=== PATIENT | female | born 1980 | race Caucasian/White ===

== ENCOUNTER 2020-06-26 09:03 | Emergency (ER) | payer BC, SELFPAY ==
[2020-06-26 09:21] VITALS: BP 107/76; PULSE 108; RESP 20; TEMP 37; O2SAT 98; BMI 25.0
--- NOTE | 2020-06-26 09:37 | HMH.EDUTC ---
[facility] [place] Disposition Clinical Impression: Flu-like symptoms UTI (urinary tract infection) Qualifiers: Urinary tract infection type: site unspecified Hematuria presence: with hematuria Qualified Code(s): N39.0 - Urinary tract infection, site not specified; R31.9 - Hematuria, unspecified Disposition: Home, Self-Care Condition on Discharge: Good Instructions: Urinary Tract Infection, DI for Urinary Tract Infection (UTI), DI for Fever (Symptom) -- Adult, Preventing the Spread of Coronavirus Discharge Instructions Additional Instructions: *Increase fluids. Water not Soda or Tea *Start antibiotic immediately and be sure to take as ordered for the FULL length of time although you should start to see improvement over the next 48 hours *Pyridium as needed Remember this medication will turn your urine Christiana. This is normal but it will stain what ever it gets on *You should not use Pyridium for more than 48 hours. If so , follow up with your primary physician to review urine culture and ensure that antibiotic is adequate for infection *Be SURE to follow up anytime for new or worsening symptoms with your family doctor. AND in 48 hours for urine culture results with your family doctor, if you do not have a doctor then you may call back to the [facility] for urine culture results and further treatment. We do recommend that you choose and establish care with a Primary Care Physician. AND follow up with them in 10-14 days to repeat UA to ensure infection is resolved and blood no longer present *Be sure to let your PCP know that we sent urine cultures from the [facility] so they can follow up to ensure that you area the on the correct antibiotic Call your doctor office and make appointment for 48 hours (2 days from today) to follow up and get the results of your urine culture and further treatment Straight to ER if any life threatening symptoms You was tested for today for COVID19 your test result should be back later this evening, you may call back later this evening to see if your test results are back and the result You was given a handout with instructions for Self Quarantine and Self isolation for while you wait on test results and what to do if they are positive *Monitor Temp, Over the counter Motrin or Tylenol as directed/as needed Tylenol every 4 hours and Motrin every 6 hours (as long as your family doctor has told you that you can take it) for fever or pain. and straight to ER if unable to lower temp less than 101.0 after medication given Prescriptions: Sulfamethoxazole/Trimethoprim [Bactrim DS tablet] 1 each PO BID 10 Days #20 tab Prescription Printed Phenazopyridine HCl [Pyridium 200mg Tablet] 200 pow PO TID #6 tab Prescription Printed Referrals: Loli Ashford [Primary Care Provider] - As needed Forms: Work/School Release Time of Disposition: 10:07 Medical Decision Making - Abrahan Inquiry Pt receiving controlled substance: No Abrahan was queried for this patient: No Vital Signs: 06/26/20 09:21 Temperature 98.6 F Temperature Source Oral Pulse Rate [Radial] 108 H Respiratory Rate 20 Blood Pressure [Right Arm] 107/76 L Blood Pressure Mean [Right Arm] 86 Blood Pressure Source [Right Arm] Automatic Cuff Blood Pressure Position [Right Arm] Sitting 02 Sat by Pulse Oximetry 98 Oxygen Delivery Method Room Air - Lab Data Lab results reviewed: Yes: I reviewed the patient's lab results. Orders (Tests/Meds): ED MEDICATIONS Discontinued Medications Generic Name Dose Route Start Last Admin Trade Name Mylene PRN Reason Stop Dose Admin Ceftriaxone Sodium 1 gm 06/26/20 09:50 06/26/20 09:58 Ceftriaxone 1gm Vial IM 06/26/20 09:51 1 gm ONCE ONE Administration Protocol Lidocaine HCl 0 ml 06/26/20 09:50 06/26/20 09:58 Lidocaine 1% 5ml Pf Vial IM 06/26/20 09:51 2.1 ml ONCE ONE Administration ORDERS Category Date Time Status Covid-19 Nasal PCR ([facility]) Routine Lab 06/26/20 09:50 Received Urine Culture Stat Micro
[2020-06-26 10:25] VITALS: BP 107/76; PULSE 108; RESP 20; TEMP 37; O2SAT 98
[2020-06-26 16:35] LABS: UTC Influenza A Antigen Negative (Negative); UTC Influenza B Antigen Negative (Negative)
[2020-06-26 16:36] LABS: Apearance,Urine Clear (Clear); Color,Urine Yellow (Yellow); PH,Urine 5.5 (5.0-8.5)
[2020-06-26 16:37] LABS: Bilirubin,Urine 1+ (Negative); Blood, Urine 2+ (Negative); Glucose,Urine (UA) Negative (Negative); Ketones,Urine TRACE (Negative); Protein,Urine 1+ (Negative); UTC Leukocyte Esterase,Urine 2+ (Negative); UTC Nitrate,Urine Negative (Negative); Urobilinogen,Urine 0.2 EU/dl (0.2)
== END 2020-06-26 10:26 | disposition home or self-care (01) ==
PROVIDERS: Emergency Provider Nurse Practitioner; PCP Nurse Practitioner Family
DX: N30.01 Acute cystitis with hematuria (principal); B96.20 Unspecified Escherichia coli [E. coli] as the cause of diseases classified elsewhere; Z20.828 Contact with and (suspected) exposure to other viral communicable diseases
CPT/HCPCS: 81003; 87086; 87088; 87186; 87804; 96372; 99202; U0003

== ENCOUNTER 2020-06-27 10:47 | Inpatient (IN) | payer BC, SELFPAY ==
[2020-06-27] VITALS (9 sets, daily range): BP systolic 105–146; BP diastolic 63–92; PULSE 90–157; RESP 16–20; TEMP 37.2–39.2; O2SAT 96–100; BMI 25.8
--- NOTE | 2020-06-27 11:10 | XR_ITS ---
PROCEDURE: XR CHEST PORTABLE CLINICAL HISTORY: cough COMPARISON: No exams were available for comparison FINDINGS: The cardiomediastinal silhouette and pulmonary vascularity are within normal limits. The lungs are clear without infiltrates, suspicious nodules, or pleural effusions. No acute bony abnormalities. IMPRESSION: No acute findings. Dictated by: Bill Barnes MD 06/27/2020 12:17 Bill Barnes MD in [place] 06/27/2020 12:17
--- NOTE | 2020-06-27 11:10 | CT_ITS ---
PROCEDURE: CT ABDOMEN PELVIS W CON CLINICAL INDICATION: flank pain Flank pain with fever COMPARISON: No exams were available for comparison TECHNIQUE: IV Contrast: 75ML OPTIRAY 350 Oral Contrast None Axial images obtained with sagittal and coronal reformats. All CT scans at the facility use one or more dose reduction, viz: automated exposure control, ma/kV adjustment per patient size (including targeted exams where dose is matched to indication, i.e. head), or iterative reconstruction technique. FINDINGS: LOWER THORAX: There is minimal thickening of the pericardium anteriorly. ABDOMEN & PELVIS: Low-density changes are present involving the left hepatic lobe anteriorly at the region of the falciform ligament and may be due to fatty infiltration. There is a focal area enhancement involving the central aspect of the right hepatic lobe at 12 mm nonspecific. There is a linear area of decreased attenuation involving the spleen posteriorly possibly related to a splenic cleft and could be confirmed with follow-up. The adrenal glands, pancreas, and gallbladder have an unremarkable appearance. No renal or ureteral calculi are evident. There is some scarring involving the posterior and lateral aspect of the right kidney. 14 mm hypodensity involves the left kidney inferiorly and 10 mm hypodensity of the left kidney posteriorly consistent with left-sided renal cyst. The urinary bladder has an unremarkable appearance. There are small bilateral ovarian follicles. No intestinal obstruction or free air. No evidence of appendicitis or diverticulitis. No acute bony anomaly. Mild prominence of the low-density changes of the endometrium nonspecific. A small hyperdensity is present involving the right aspect of the body of the uterus at 9 mm possibly due to a fibroid. IMPRESSION: No acute abdominal or pelvic findings. Scarring of the right kidney with left renal cyst noted. 12 mm enhancing lesion right hepatic lobe nonspecific Dictated by: Bill Barnes MD 06/27/2020 12:15 Bill Barnes MD in [place] 06/27/2020 12:15
[2020-06-27 11:15] LABS: Microscopic, Urine URINE MICROSCOPIC (MICROSCOPIC)
[2020-06-27 11:18] LABS: Appearance,Urine CLOUDY (Clear); Blood, Urine 2+ (Negative); Color,Urine DK YELLOW (Yellow); Glucose,Urine (UA) TRACE (Negative); Ketones,Urine TRACE (Negative); Leukocyte Esterase,Urine Negative (Negative); Nitrate,Urine POSITIVE (Negative); Protein,Urine 2+ (Negative); Specific Gravity, Urine >= 1.030 (1.005-1.030); Urobilinogen,Urine 0.2 EU/dl (0.2)
--- NOTE | 2020-06-27 11:18 | HMH.EDFEV ---
ED Disposition Clinical Impression: Acute pyelonephritis due to bacteria, Acute onset sepsis Disposition: Admitted As Inpatient Condition on Discharge: Serious Referrals: Loli Ashford [Primary Care Provider] - - Critical Care Critical Care Time: No Attestation: On 06/27/20, the high probability of a clinically significant, sudden or life threatening deterioration of the following system(s) required my full and direct attention, intervention and personal management. The time I documented below is in addition to time spent performing reported procedures but includes the following listed in this critical care notation. Medical Decision Making - Medical Records Medical records reviewed: Yes: I reviewed the patient's medical records. - Abrahan Inquiry Pt receiving controlled substance: No Vital Signs: 06/27/20 10:56 06/27/20 12:42 Temperature 102.6 F H Temperature Source Oral Pulse Rate [Right Radial] 157 H 107 H Respiratory Rate 20 Blood Pressure [Right Arm] 146/92 H 114/70 Blood Pressure Mean [Right Arm] 110 84 Blood Pressure Source [Right Arm] Automatic Cuff Blood Pressure Position [Right Arm] Sitting 02 Sat by Pulse Oximetry 96 97 Oxygen Delivery Method Room Air - Lab Data Lab Results 06/27/20 11:05: Urine Color Dk yellow, Urine Appearance Cloudy, Urine pH 6.0, Ur Specific [place] >= 1.030, Urine Protein 2+, Urine Glucose (UA) Trace, Urine Ketones Trace, Urine Blood 2+, Urine Nitrate Positive, Urine Bilirubin 1+ A, Urine Urobilinogen 0.2, Ur Leukocyte Esterase Negative, Urine RBC 10-20, Urine WBC 3-5, Ur Squamous Epith Cells 3-5, Urine Bacteria Trace 06/27/20 11:05: WBC 6.4, RBC 4.55, Hgb 15.4, Hct 45.9, MCV 100.9 H, MCH 33.9 H, MCHC 33.6, RDW 13.5, Plt Count 105 L, MPV 10.2, Neut % (Auto) 41.0, Lymph % (Auto) 54.0 H, [place] % (Auto) 2.2, Eos % (Auto) 0.2, Baso % (Auto) 2.6 H, Neut # (Auto) 2.6, Lymph # (Auto) 3.4, [place] # (Auto) 0.1, Eos # (Auto) 0.0, Baso # (Auto) 0.2, Total Counted 100, Neutrophils % (Manual) 48, Lymphocytes % (Manual) 45, Monocytes % (Manual) 7, Platelet Estimate Slight decrease, RBC Morphology Normal 06/27/20 11:05: Urine HCG, Qual Negative 06/27/20 11:05: Sodium 131 L, Potassium 3.4 L, Chloride 97 L, Carbon Dioxide 22, Anion Gap 15.4 H, BUN 8, Creatinine 1.00, Estimated Creat Clear 87, Estimated GFR 62, Est GFR ( Amer) 75, Glucose 180 H, Calcium 8.9, Total Bilirubin 0.5, AST 169 H, ALT 72, Alkaline Phosphatase 106, Total Protein 7.4, Albumin 4.1, Globulin 3.3 H, Albumin/Globulin Ratio 1.2 06/27/20 11:05: Lactate 3.6 H 06/27/20 11:05: SARS-CoV-2 IgG Ab (Rapid) Negative, SARS-CoV-2 IgM Ab (Rapid) Negative Result diagrams: 06/27/20 11:05 06/27/20 11:05 Orders (Tests/Meds): ED MEDICATIONS Generic Name Dose Route Start Last Admin Trade Name Freq PRN Reason Stop Dose Admin Ceftriaxone Sodium 2 gm/ 100 mls @ 100 mls/hr 06/27/20 11:15 06/27/20 11:37 Sodium Chloride IV 07/11/20 11:14 100 mls/hr Q24H MARQUITA Administration Protocol Discontinued Medications Generic Name Dose Route Start Last Admin Trade Name Freq PRN Reason Stop Dose Admin Acetaminophen 1,000 mg 06/27/20 11:01 06/27/20 11:10 Acetaminophen 500mg Tab PO 06/27/20 11:02 1,000 mg ONCE ONE Administration Sodium Chloride 1,000 mls @ 999 mls/hr 06/27/20 11:15 06/27/20 11:10 Sod Chlor 0.9% 1000ml Bag IV 06/27/20 12:15 999 mls/hr .Q1H1M MARQUITA Administration Sodium Chloride 1,000 mls @ 999 mls/hr 06/27/20 11:45 06/27/20 11:38 Sod Chlor 0.9% 1000ml Bag IV 06/27/20 12:45 999 mls/hr .Q1H1M MARQUITA Administration Iopamidol 50 ml 06/27/20 11:51 06/27/20 11:52 Iopamidol-370 (76%); 50ml Vial IV 06/27/20 11:52 50 ml ONCE ONE Administration Iopamidol 25 ml 06/27/20 11:51 06/27/20 11:52 Iopamidol-370 (76%); 50ml Vial IV 06/27/20 11:52 25 ml ONCE ONE Administration Ketorolac Tromethamine 30 mg 06/27/20 11:01 06/27/20 11:10 Ketorolac 30mg/Ml Vial IV 06/27/20
[2020-06-27 11:19] LABS: Urine Pregnancy, HCG Qual. Negative (Negative)
[2020-06-27 11:20] LABS: Basophils # 0.2 K/mm3 (0-0.2); Basophils % 2.6 % (0.1-2.0); Bilirubin,Urine 1+ (Negative); Eosinophils % 0.2 % (0.1-12.0); Hematocrit 45.9 % (37.0-47.0); Hemoglobin 15.4 g/dL (12.2-16.2); Lymphocytes # 3.4 K/mm3 (0.7-4.5); Mean Corpuscular HGB Conc 33.6 g/dL (31.8-35.4); Mean Corpuscular Hemoglobin 33.9 pg (27.0-31.2); Mean Corpuscular Volume 100.9 fl (81-99); Mean Platelet Volume 10.2 fl (7.4-10.4); Monocytes # 0.1 K/mm3 (0.1-1.0); Monocytes % 2.2 % (1.7-9.3); Neutrophils # 2.6 K/mm3 (1.8-7.8); Platelet Count 105 K/mm3 (142-424); Red Blood Count 4.55 M/mm3 (4.20-5.40); Red Cell Distribution Width 13.5 % (11.5-17.5); White Blood Count 6.4 K/mm3 (4.8-10.8)
[2020-06-27 11:21] LABS: Chloride 97 mmol/L (98-107)
[2020-06-27 11:22] LABS: Potassium 3.4 mmoL/L (3.5-5.1); Sodium 131 mmol/L (136-145)
[2020-06-27 11:24] LABS: Alanine Aminotransferase 72 U/L (12-78); Alkaline Phosphatase 106 U/L (38-126); Anion Gap 15.4 mEq/L (5-15); Aspartate Amino Transferase 169 U/L (14-36); Bilirubin,Total 0.5 mg/dl (0.2-1.3); Blood Urea Nitrogen 8 mg/dl (7-17); Carbon Dioxide 22 mmol/L (22.0-30.0); Creatinine Clearance Estimated 87 mL/min (50-200); Estimated Glomerular Filt Rate 62 ml/min (>60); GFR (African American) 75 ML/MIN (>60)
[2020-06-27 11:25] LABS: Albumin Level 4.1 g/dl (3.5-5.0); Albumin/Globulin Ratio 1.2 (1.1-1.8); Calcium 8.9 mg/dl (8.4-10.2); Globulin 3.3 g/dL (1.3-3.2); Glucose 180 mg/dl (74-100); MANUAL DIFFERENTIAL MANUAL DIFFERENTIAL (MANUAL DIFF); Total Protein,Serum 7.4 g/dl (6.3-8.2)
[2020-06-27 11:26] LABS: Bacteria,Urine Trace /lpf
[2020-06-27 11:27] LABS: Lactic Acid 3.6 mmol/L (0.7-2.1)
[2020-06-27 11:55] LABS: Coronavirus 19 IgG Antibody Negative (Negative); Coronavirus 19 IgM Antibody Negative (Negative)
[2020-06-27 11:57] LABS: Lymphocytes % 45 % (10-50); Monocytes % 7 % (2-9); Neutrophils % 48 % (42-76); Total Cells Counted 100
[2020-06-27 11:58] LABS: Platelet Estimate Slight Decrease; RBC Morphology Normal
--- NOTE | 2020-06-27 13:21 | PC.NURSE ---
dr hernandez consulting with dr stark concerning admit.
--- NOTE | 2020-06-27 13:25 | PC.NURSE ---
waiting talent acquisition coordinator back from dr. byers who is talent acquisition coordinator for service pts
--- NOTE | 2020-06-27 13:28 | PC.NURSE ---
VANNA TOWNSEND spoke with Dr Chavez
--- NOTE | 2020-06-27 13:29 | PC.NURSE ---
notified care management of admission, [facility] supervisor states no beds available at this time.
--- NOTE | 2020-06-27 14:23 | PC.NURSE ---
washhouse worker states they will have beds coming available, states they will update us when rooms are ready
--- NOTE | 2020-06-27 14:40 | PC.NURSE ---
patient updated on plan of care. denies needs or questions a this time
[2020-06-27 15:14] LABS: Reflex Lactic Add Lactic Reflex
[2020-06-27 16:08] LABS: Lactic Acid Follow Up (RFLX 1) 0.7 mmol/L (0.7-2.1)
--- NOTE | 2020-06-27 16:11 | HMH.PHAVTE ---
[facility] Pharmacy VTE Monitoring - Patient Demographics Admission date: 06/27/20 Report Date: 06/27/20 Time: 16:11 Allergies/Adverse Reactions: Patient Allergies No Known Allergies Allergy (Verified 06/27/20 11:00) Height: 1.68 m Weight: 72.575 kg Patient Problems: Current Active Problems Acute pyelonephritis due to bacteria (Acute) Acute onset sepsis (Acute) - VTE Risk Labs: VTE Related Lab Results Hgb 15.4 g/dL (12.2-16.2) 06/27/20 11:05 Hct 45.9 % (37.0-47.0) 06/27/20 11:05 Plt Count 105 K/mm3 (142-424) L 06/27/20 11:05 BUN 8 mg/dl (7-17) 06/27/20 11:05 Creatinine 1.00 mg/dl (0.52-1.04) 06/27/20 11:05 Estimated Creat Clear 87 mL/min (50-200) 06/27/20 11:05 - Prophylaxis VTE Prophylaxis Ordered?: Yes Types of VTE Prophylaxis: TEDS Knee High Location of Applied Device: Bilateral Lower Extremeties
--- NOTE | 2020-06-27 16:13 | HMH.PHAINT ---
MEDICATION RECONCILIATION COMPLETED ON PATIENT USING EXTERNAL FILL HISTORY FROM PHARMACY. -SHALOM GRAJEDA, OSWALDD
--- NOTE | 2020-06-27 17:24 | HMH.HP ---
*Admission Date: 06/27/20 *Chief complaint: Persistent fever *History of present illness: 40-year-old female presented to the emergency department with generalized weakness and fever. Patient has been having symptoms for the last week or so. She went to a facility in [place] when she was tested for influenza and coronavirus. Both were negative. Her fever persisted and she was seen yesterday at our urgent treatment facility. She again had negative coronavirus and flu testing. However she did have a positive urinalysis. It looks like she grew E. coli in her urine. Patient is endorsing some generalized muscle aches and fatigue. She does complain of some flank pain bilaterally. No radiation. Dull in nature. She states that her biggest complaint is she is having chills and feels warm all the time. She denies any headache or change in vision. No focal weakness. No neck pain. She has had a mild cough, nonproductive. Denies any chest pain or palpitations. No diarrhea or blood in stool. No vaginal discharge. Above note per emergency department. Patient notes that she has right-sided scleral irritation and some gingival bleeding. Otherwise symptoms noted as above [facility] History I have reviewed the patient's past medical history: Yes Medical History: Denies:: Cancer, Diabetes Mellitus Type 1, Diabetes Mellitus Type 2, MRSA *Have you ever received a pneumonia vaccine?: No *Have you received a flu vaccine this season?: No Other Surgeries: Yes: Other (ureter surgery) Amputation: No - *Social History Last grade of school completed: Advanced degree Alcohol Intake: current Alcohol Intake Frequency:: holidays/special occasions only *Occupational Status:: employed Housing: house Household Members: children *Travel in the last 8 weeks: None Family Hx:: Cancer Review of Systems - Review of Systems Review of systems:: pertinent systems reviewed and negative unless documented below - *Neurologic Denies headache(s) Meds Home Medications Medication Instructions Recorded Confirmed Type Phenazopyridine HCl [Pyridium 200 mg PO TID 06/27/20 06/27/20 History 200mg Tablet] Sulfamethoxazole/Trimethoprim 1 each PO BID 06/27/20 06/27/20 History [Bactrim DS tablet] Allergies Allergy/AdvReac Type Severity Reaction Status Date / Time No Known Allergies Allergy Verified 06/27/20 11:00 Exam Vital signs and Labs for Last 24 Hours: Temp Pulse Resp BP Pulse Ox 99.6 F 90 17 110/70 97 06/27/20 16:08 06/27/20 16:08 06/27/20 16:08 06/27/20 16:08 06/27/20 15:06 Laboratory Results - last 24 hr 06/27/20 11:05: Urine Color Dk yellow, Urine Appearance Cloudy, Urine pH 6.0, Ur Specific [place] >= 1.030, Urine Protein 2+, Urine Glucose (UA) Trace, Urine Ketones Trace, Urine Blood 2+, Urine Nitrate Positive, Urine Bilirubin 1+ A, Urine Urobilinogen 0.2, Ur Leukocyte Esterase Negative, Urine RBC 10-20, Urine WBC 3-5, Ur Squamous Epith Cells 3-5, Urine Bacteria Trace 06/27/20 11:05: WBC 6.4, RBC 4.55, Hgb 15.4, Hct 45.9, MCV 100.9 H, MCH 33.9 H, MCHC 33.6, RDW 13.5, Plt Count 105 L, MPV 10.2, Neut % (Auto) 41.0, Lymph % (Auto) 54.0 H, [place] % (Auto) 2.2, Eos % (Auto) 0.2, Baso % (Auto) 2.6 H, Neut # (Auto) 2.6, Lymph # (Auto) 3.4, [place] # (Auto) 0.1, Eos # (Auto) 0.0, Baso # (Auto) 0.2, Total Counted 100, Neutrophils % (Manual) 48, Lymphocytes % (Manual) 45, Monocytes % (Manual) 7, Platelet Estimate Slight decrease, RBC Morphology Normal 06/27/20 11:05: Urine HCG, Qual Negative 06/27/20 11:05: Sodium 131 L, Potassium 3.4 L, Chloride 97 L, Carbon Dioxide 22, Anion Gap 15.4 H, BUN 8, Creatinine 1.00, Estimated Creat Clear 87, Estimated GFR 62, Est GFR ( Amer) 75, Glucose 180 H, Calcium 8.9, Total Bilirubin 0.5, AST 169 H, ALT 72, Alkaline Phosphatase 106, Total Protein 7.4, Albumin 4.1, Globulin 3.3 H, Albumin/Globulin Ratio 1.2 06/27/20 11:05: Lactate 3.6 H 06/27/20 11:05: SARS-CoV-2 IgG Ab (Rapid) Negative, SARS-CoV-
[2020-06-27 18:34] LABS: Adenovirus,PCR Not Detected (NotDetected); Bordetella Pertussis Not Detected (NotDetected); Chlamydophila Pneumoniae, PCR Not Detected (NotDetected); Coronavirus 229E Not Detected (NotDetected); Coronavirus NL63 Not Detected (NotDetected); Coronavirus OC43 Not Detected (NotDetected); Coronovirus HKU1,PCR Not Detected (NotDetected); Human Metapneumovirus Not Detected (NotDetected); Influenza A, PCR Not Detected (NotDetected); Influenza AH1, 2009 Not Detected (NotDetected); Influenza AH1, PCR Not Detected (NotDetected); Influenza AH3,PCR Not Detected (NotDetected); Influenza B, PCR Not Detected (NotDetected); Mycoplasma Pneumoniae, PCR Not Detected (NotDetected); Parainfluenza 1, PCR Not Detected (NotDetected); Parainfluenza 2, PCR Not Detected (NotDetected); Parainfluenza 3, PCR Not Detected (NotDetected); Parainfluenza 4, PCR Not Detected (NotDetected); Respiratory Syncytial Virus Not Detected (NotDetected); Rhinovirus/Enterovirus Not Detected (NotDetected)
--- NOTE | 2020-06-27 19:24 | PC.NURSE ---
report given to sean
[2020-06-28] VITALS (7 sets, daily range): BP systolic 100–129; BP diastolic 50–75; PULSE 94–135; RESP 17–21; TEMP 36.9–39.6; O2SAT 94–100; BMI 26.2
--- NOTE | 2020-06-28 03:18 | PC.NURSE ---
Pt A&OX4 lungs CTA. pt denies SOA or pain. Pt ambulates to BR independently. Pt has rested quietly this shift
[2020-06-28 06:36] LABS: Chloride 104 mmol/L (98-107); Sodium 130 mmol/L (136-145)
[2020-06-28 06:39] LABS: Alanine Aminotransferase 45 U/L (12-78); Albumin Level 2.7 g/dl (3.5-5.0); Alkaline Phosphatase 79 U/L (38-126); Anion Gap 6.7 mEq/L (5-15); Aspartate Amino Transferase 137 U/L (14-36); Bilirubin,Total 0.4 mg/dl (0.2-1.3); Blood Urea Nitrogen 5 mg/dl (7-17); Carbon Dioxide 22 mmol/L (22.0-30.0); Creatinine Clearance Estimated 107 mL/min (50-200); Estimated Glomerular Filt Rate 80 ml/min (>60); GFR (African American) 97 ML/MIN (>60); Globulin 2.6 g/dL (1.3-3.2); Glucose 96 mg/dl (74-100); Total Protein,Serum 5.3 g/dl (6.3-8.2)
--- NOTE | 2020-06-28 07:16 | HMH.ACPN2 ---
Internal Medicine - PN: Subj *Date: 06/28/20 *Time: 09:06 Interval history: Did well overnight. Continued to be febrile. Otherwise, hemodynamically stable. Complains of having diarrhea that is longstanding. Multiple loose stools a day. Lauri discussion this morning about patient's labs. Noted to be thrombocytopenic and have macrocytosis. She does admit to drinking 4 glasses of wine a day for the past month or more. Has been going through increased stress at home consisting of divorce. Not eating well. Discussed how this may be a factor in her conjunctival hemorrhage, risk for infection, and GI symptoms. She denies any history of ever having alcohol withdrawal or seizures. Still has prominent cough this morning. No blood in stool. No new bruising per her report. Denies significant belly pain or nausea. Head still feels foggy but improved per her report. Exam Vital signs and Labs for Last 24 Hours: Temp Pulse Resp BP Pulse Ox 100.2 F H 121 H 17 129/75 99 06/28/20 04:34 06/28/20 04:00 06/28/20 04:00 06/28/20 04:00 06/28/20 04:00 Laboratory Results - last 24 hr 06/27/20 11:05: Urine Color Dk yellow, Urine Appearance Cloudy, Urine pH 6.0, Ur Specific [place] >= 1.030, Urine Protein 2+, Urine Glucose (UA) Trace, Urine Ketones Trace, Urine Blood 2+, Urine Nitrate Positive, Urine Bilirubin 1+ A, Urine Urobilinogen 0.2, Ur Leukocyte Esterase Negative, Urine RBC 10-20, Urine WBC 3-5, Ur Squamous Epith Cells 3-5, Urine Bacteria Trace 06/27/20 11:05: WBC 6.4, RBC 4.55, Hgb 15.4, Hct 45.9, MCV 100.9 H, MCH 33.9 H, MCHC 33.6, RDW 13.5, Plt Count 105 L, MPV 10.2, Neut % (Auto) 41.0, Lymph % (Auto) 54.0 H, [place] % (Auto) 2.2, Eos % (Auto) 0.2, Baso % (Auto) 2.6 H, Neut # (Auto) 2.6, Lymph # (Auto) 3.4, [place] # (Auto) 0.1, Eos # (Auto) 0.0, Baso # (Auto) 0.2, Total Counted 100, Neutrophils % (Manual) 48, Lymphocytes % (Manual) 45, Monocytes % (Manual) 7, Platelet Estimate Slight decrease, RBC Morphology Normal 06/27/20 11:05: Urine HCG, Qual Negative 06/27/20 11:05: Sodium 131 L, Potassium 3.4 L, Chloride 97 L, Carbon Dioxide 22, Anion Gap 15.4 H, BUN 8, Creatinine 1.00, Estimated Creat Clear 87, Estimated GFR 62, Est GFR ( Amer) 75, Glucose 180 H, Calcium 8.9, Total Bilirubin 0.5, AST 169 H, ALT 72, Alkaline Phosphatase 106, Total Protein 7.4, Albumin 4.1, Globulin 3.3 H, Albumin/Globulin Ratio 1.2 06/27/20 11:05: Lactate 3.6 H 06/27/20 11:05: SARS-CoV-2 IgG Ab (Rapid) Negative, SARS-CoV-2 IgM Ab (Rapid) Negative 06/27/20 15:34: Lactate 0.7 06/27/20 18:05: Chlamy pneumoniae PCR Not detected, Adenovirus (PCR) Not detected, B. pertussis DNA (PCR) Not detected, Coronavirus OC43 (PCR) Not detected, Coronavirus HKU1 (PCR) Not detected, Coronavirus 229E (PCR) Not detected, Coronavirus NL63 (PCR) Not detected, Human Metapneumovir PCR Not detected, Influenza A (H1) PCR Not detected, Influ A (H1N1/09) PCR Not detected, Influenza A (H3) PCR Not detected, Influenza Type A (PCR) Not detected, Influenza Type B (PCR) Not detected, M. pneumoniae (PCR) Not detected, Parainfluenza 1 (PCR) Not detected, Parainfluenza 2 (PCR) Not detected, Parainfluenza 3 (PCR) Not detected, Parainfluenza 4 (PCR) Not detected, RSV (PCR) Not detected, Entero/Rhino (PCR) Not detected I & O for Last 24 hours: Intake & Output 06/26/20 06/26/20 06/27/20 06/28/20 00:59 23:59 23:59 23:59 Intake Total 1157 / 1157 Balance 1157 / 1157 Weight 70.505 kg 71.214 kg - Constitutional no acute distress - *Routine HEENT Exam Head: Present: normocephalic Eye: Present: EOMI, PERRL ENT: Present: mucous membranes moist, other (Significant bruising of gums on both upper and lower jaw. No active bleeding) Comments: Conjunctival hemorrhage over entire right eye, left eye normal - *Routine Neck Exam Present: supple. Absent: lymphadenopathy - *Routine Respiratory Exam Present: CTA bilaterally. Absent: rhonchi, wheezes, crackles Comments: Coughing during exa
[2020-06-28 07:47] LABS: Potassium 2.7 mmoL/L (3.5-5.1)
[2020-06-28 09:39] LABS: Magnesium 1.5 mg/dl (1.6-2.3)
[2020-06-28 10:00] LABS: INR 1.23 (0.9-1.1); Prothrombin Time 13.4 seconds (9.4-11.8)
[2020-06-28 15:51] LABS: Basophils # 0.1 K/mm3 (0-0.2); Basophils % 1.2 % (0.1-2.0); Eosinophils % 0.2 % (0.1-12.0); Hematocrit 35.9 % (37.0-47.0); Lymphocytes # 4.2 K/mm3 (0.7-4.5); Lymphocytes % 58.6 % (10-50); Mean Corpuscular HGB Conc 33.8 g/dL (31.8-35.4); Mean Corpuscular Volume 100.5 fl (81-99); Mean Platelet Volume 10.6 fl (7.4-10.4); Monocytes # 0.2 K/mm3 (0.1-1.0); Monocytes % 2.3 % (1.7-9.3); Neutrophils # 2.7 K/mm3 (1.8-7.8); Neutrophils % 37.8 % (37.0-80.0); Platelet Count 87 K/mm3 (142-424); Red Blood Count 3.58 M/mm3 (4.20-5.40); Red Cell Distribution Width 13.7 % (11.5-17.5); White Blood Count 7.2 K/mm3 (4.8-10.8)
--- NOTE | 2020-06-28 15:57 | PC.NURSE ---
PT IS RESTING IN BED. AMBULATED TO THE BATHROOM. TOLERATED TAKING A SHOWER THIS SHIFT. PT HAS NOT HAD MUCH OF AN APPETITE BUT HAS BEEN DRINKING PLENTY OF LIQUIDS. PT HAD A FEVER THIS AFTERNOON OF 103.1 ( MEDICATED WITH TYLENOL) THIS MORNING ON ASSESSMENT THE SCLERA OF HER RT EYE WAS RED AND HER GUMS WERE BRUISED. LATER THIS AFTERNOON THE SCLERA OF HER LEFT EYE LOOKS THE SAME THE RT (NOTIFIED ABOUT THE RT EYE AND TEMP OF 103.1) LUNG SOUNDS CLEAR. ABDOMEN SOFT/ NON TENDER WITH ACTIVE BOWEL SOUNDS. PT STATES SHE HAD 1 LOOSE STOOL THIS MORNING. PT ALSO VOICED EARLIER THIS AFTERNOON THAT SHE FEELS A LOT OF HER PROBLEM IS THAT SHE HAS BEEN REALLY DEPRESSED THE LAST FEW MONTHS B/C SHE WENT THROUGH A REALLY BAD DIVORCE AND HAS ONLY BEEN ABLE TO SEE HER 2 CHILDREN 2 DAY A WEEK AND EVERY OTHER WEEKEND. PT STATES EVER SINCE HER DIVORCE SHE HAS BEEN DRINKING A FEW GLASSES OF WINE AT NIGHTS BUT WHEN SHE LEAVES THE HOSPITAL SHE WILL JUST THROW AWAY WHAT SHE HAS LEFT. CALLED AND PUT IN SOME ORDERS FOR ADDITIONAL LAB WORK.
[2020-06-28 16:15] LABS: MANUAL DIFFERENTIAL MANUAL DIFFERENTIAL (MANUAL DIFF)
[2020-06-28 17:01] LABS: Basophils % 0.6 % (0.1-2.0); Eosinophils % 0.1 % (0.1-12.0); Hematocrit 34.7 % (37.0-47.0); Hemoglobin 11.6 g/dL (12.2-16.2); Lymphocytes # 2.4 K/mm3 (0.7-4.5); Lymphocytes % 47.8 % (10-50); Mean Corpuscular HGB Conc 33.6 g/dL (31.8-35.4); Mean Corpuscular Hemoglobin 33.3 pg (27.0-31.2); Mean Corpuscular Volume 99.2 fl (81-99); Mean Platelet Volume 10.1 fl (7.4-10.4); Monocytes # 0.1 K/mm3 (0.1-1.0); Monocytes % 2.2 % (1.7-9.3); Neutrophils # 2.5 K/mm3 (1.8-7.8); Neutrophils % 49.2 % (37.0-80.0); Platelet Count 88 K/mm3 (142-424); Red Cell Distribution Width 13.6 % (11.5-17.5); White Blood Count 5.1 K/mm3 (4.8-10.8)
[2020-06-28 17:15] LABS: Lymphocytes % 42 % (10-50); Monocytes % 11 % (2-9); Neutrophils % 38 % (42-76); Total Cells Counted 100
[2020-06-28 17:16] LABS: D-Dimer > 8.10 ug/mL (0.15-8.0)
[2020-06-28 17:17] LABS: Lactate Dehydrogenase 1644 U/L (313-618)
[2020-06-28 17:19] LABS: Microcytosis 1+
[2020-06-28 17:20] LABS: Polychromasia 2+
[2020-06-28 17:21] LABS: Platelet Estimate Moderate Decrease
[2020-06-28 17:24] LABS: Hemoglobin 12.1 g/dL (12.2-16.2)
[2020-06-28 17:59] LABS: Uric Acid 2.6 mg/dl (2.5-6.2)
--- NOTE | 2020-06-28 19:07 | PC.NURSE ---
report given to sean
[2020-06-29] VITALS (10 sets, daily range): BP systolic 117–123; BP diastolic 60–75; PULSE 111–120; RESP 18–21; TEMP 37.2–39.4; O2SAT 95–96; BMI 26.2
--- NOTE | 2020-06-29 00:54 | PC.NURSE ---
1999 patient complaining of being cold, temp taken 99.2. an hour later patient complained of chilling, temp taken 99.7 tylenol given. an hour later 101.7. midnight vs done temp up to 102.9 and aching toradol. temp now 0045 down to 100.5
[2020-06-29 06:22] LABS: Basophils % 0.8 % (0.1-2.0); Eosinophils % 0.3 % (0.1-12.0); Hematocrit 35.1 % (37.0-47.0); Hemoglobin 11.3 g/dL (12.2-16.2); Lymphocytes # 1.7 K/mm3 (0.7-4.5); Lymphocytes % 38.7 % (10-50); Mean Corpuscular HGB Conc 32.3 g/dL (31.8-35.4); Mean Corpuscular Hemoglobin 32.5 pg (27.0-31.2); Mean Corpuscular Volume 100.7 fl (81-99); Mean Platelet Volume 10.7 fl (7.4-10.4); Monocytes # 0.1 K/mm3 (0.1-1.0); Monocytes % 2.9 % (1.7-9.3); Neutrophils # 2.6 K/mm3 (1.8-7.8); Neutrophils % 57.2 % (37.0-80.0); Platelet Count 58 K/mm3 (142-424); Red Blood Count 3.49 M/mm3 (4.20-5.40); Red Cell Distribution Width 13.3 % (11.5-17.5); White Blood Count 4.5 K/mm3 (4.8-10.8)
[2020-06-29 06:23] LABS: Chloride 108 mmol/L (98-107); Sodium 134 mmol/L (136-145)
[2020-06-29 06:24] LABS: Potassium 3.3 mmoL/L (3.5-5.1)
[2020-06-29 06:26] LABS: Alanine Aminotransferase 45 U/L (12-78); Albumin Level 2.6 g/dl (3.5-5.0); Alkaline Phosphatase 95 U/L (38-126); Anion Gap 8.3 mEq/L (5-15); Aspartate Amino Transferase 140 U/L (14-36); Bilirubin,Total 0.6 mg/dl (0.2-1.3); Blood Urea Nitrogen 4 mg/dl (7-17); Carbon Dioxide 21 mmol/L (22.0-30.0); Creatinine Clearance Estimated 123 mL/min (50-200); Estimated Glomerular Filt Rate 94 ml/min (>60); GFR (African American) 113 ML/MIN (>60); Globulin 2.6 g/dL (1.3-3.2); Glucose 116 mg/dl (74-100); Total Protein,Serum 5.2 g/dl (6.3-8.2)
[2020-06-29 06:27] LABS: Magnesium 2.3 mg/dl (1.6-2.3)
--- NOTE | 2020-06-29 07:03 | PC.NURSE ---
shift summary patient spike another temp this am of 101.1 orally. treated with tylenol. temp currently 99.9 patient continues to have dry cough. breath sounds. breath sounds clear. bilateral sclera blood red. not increased since beginning of shift.
[2020-06-29 07:58] LABS: Basophils % 0.8 % (0.1-2.0); Eosinophils % 0.3 % (0.1-12.0); Hematocrit 34.9 % (37.0-47.0); Hemoglobin 11.3 g/dL (12.2-16.2); Lymphocytes # 1.6 K/mm3 (0.7-4.5); Lymphocytes % 34.6 % (10-50); Mean Corpuscular HGB Conc 32.3 g/dL (31.8-35.4); Mean Corpuscular Hemoglobin 32.4 pg (27.0-31.2); Mean Corpuscular Volume 100.4 fl (81-99); Monocytes # 0.1 K/mm3 (0.1-1.0); Monocytes % 1.6 % (1.7-9.3); Neutrophils # 2.9 K/mm3 (1.8-7.8); Neutrophils % 62.8 % (37.0-80.0); Platelet Count 67 K/mm3 (142-424); Red Blood Count 3.48 M/mm3 (4.20-5.40); Red Cell Distribution Width 13.4 % (11.5-17.5); White Blood Count 4.6 K/mm3 (4.8-10.8)
--- NOTE | 2020-06-29 08:12 | HMH.ACPN2 ---
Internal Medicine - PN: Subj *Date: 06/29/20 *Time: 08:12 Interval history: Patient feels better, has continued to cough notes no bleeding in sputum, nose or urine or stool. --Feels more energetic. Exam Vital signs and Labs for Last 24 Hours: Temp Pulse Resp BP Pulse Ox 98.9 F 111 H 18 119/60 95 06/29/20 07:36 06/29/20 07:36 06/29/20 07:36 06/29/20 07:36 06/29/20 07:36 Laboratory Results - last 24 hr 06/28/20 05:40: Magnesium 1.5 L 06/28/20 05:40: WBC 7.2, RBC 3.58 L, Hgb 12.1 L D, Hct 35.9 L, MCV 100.5 H, MCH 34.0 H, MCHC 33.8, RDW 13.7, Plt Count 87 L, MPV 10.6 H, Neut % (Auto) 37.8, Lymph % (Auto) 58.6 H, [place] % (Auto) 2.3, Eos % (Auto) 0.2, Baso % (Auto) 1.2, Neut # (Auto) 2.7, Lymph # (Auto) 4.2, [place] # (Auto) 0.2, Eos # (Auto) 0.0, Baso # (Auto) 0.1, Total Counted 100, Neutrophils % (Manual) 38 L, Band Neutrophils % 2.0, Lymphocytes % (Manual) 42, Atypical Lymphs % 2.0, Monocytes % (Manual) 11 H, Basophils % (Manual) 1.0, Metamyelocytes % 1.0, Blast Cells % 3.0, Platelet Estimate Moderate decrease, Polychromasia 2+, Microcytosis 1+ 06/28/20 09:30: PT 13.4 H, INR 1.23 H, APTT 34.0 06/28/20 16:44: Lactate Dehydrogenase 1644 H 06/28/20 16:44: WBC 5.1 D, RBC 3.50 L, Hgb 11.6 L, Hct 34.7 L, MCV 99.2 H, MCH 33.3 H, MCHC 33.6, RDW 13.6, Plt Count 88 L, MPV 10.1, Neut % (Auto) 49.2, Lymph % (Auto) 47.8, [place] % (Auto) 2.2, Eos % (Auto) 0.1, Baso % (Auto) 0.6, Neut # (Auto) 2.5, Lymph # (Auto) 2.4, [place] # (Auto) 0.1, Eos # (Auto) 0.0, Baso # (Auto) 0.0 06/28/20 16:44: D-Dimer > 8.10 H 06/28/20 16:44: Uric Acid 2.6 06/29/20 05:44: WBC 4.5 L, RBC 3.49 L, Hgb 11.3 L, Hct 35.1 L, MCV 100.7 H, MCH 32.5 H, MCHC 32.3, RDW 13.3, Plt Count 58 L D, MPV 10.7 H, Neut % (Auto) 57.2, Lymph % (Auto) 38.7, [place] % (Auto) 2.9, Eos % (Auto) 0.3, Baso % (Auto) 0.8, Neut # (Auto) 2.6, Lymph # (Auto) 1.7, [place] # (Auto) 0.1, Eos # (Auto) 0.0, Baso # (Auto) 0.0 06/29/20 05:44: Sodium 134 L, Potassium 3.3 L D, Chloride 108 H, Carbon Dioxide 21 L, Anion Gap 8.3, BUN 4 L, Creatinine 0.70, Estimated Creat Clear 123, Estimated GFR 94, Est GFR ( Amer) 113, Glucose 116 H, Calcium 7.0 L, Magnesium 2.3 D, Total Bilirubin 0.6, AST 140 H, ALT 45, Alkaline Phosphatase 95, Total Protein 5.2 L, Albumin 2.6 L, Globulin 2.6, Albumin/Globulin Ratio 1.0 L 06/29/20 07:50: WBC 4.6 L, RBC 3.48 L, Hgb 11.3 L, Hct 34.9 L, MCV 100.4 H, MCH 32.4 H, MCHC 32.3, RDW 13.4, Plt Count 67 L, MPV 11.0 H, Neut % (Auto) 62.8, Lymph % (Auto) 34.6, [place] % (Auto) 1.6 L, Eos % (Auto) 0.3, Baso % (Auto) 0.8, Neut # (Auto) 2.9, Lymph # (Auto) 1.6, [place] # (Auto) 0.1, Eos # (Auto) 0.0, Baso # (Auto) 0.0 I & O for Last 24 hours: Intake & Output 06/26/20 06/27/20 06/28/20 06/29/20 11:59 11:59 11:59 11:59 Intake Total 1397 / 1397 2450 / 2450 Balance 1397 / 1397 2450 / 2450 Weight 160 lb 157 lb 157 lb Narrative: Bilateral conjunctival hemorrhages noted. No anterior chamber bleeding evident. Oropharynx clear in the posterior area. Still with gingival irritation and mild bleeding. Lungs have better air movement. Heart rate regular. Abdomen is scaphoid. No noted petechiae or evidence of joint bleeding. Neurologic exam intact Assessment and Plan (1) Acute onset sepsis Status: Acute Category: Medical Code(s): A41.9 - Sepsis, unspecified organism (2) Acute pyelonephritis due to bacteria Status: Acute Category: Medical Code(s): N10 - Acute pyelonephritis; B96.89 - Other specified bacterial agents as the cause of diseases classified elsewhere (3) Flu-like symptoms Status: Acute Category: Medical Code(s): R68.89 - Other general symptoms and signs (4) Thrombocytopenia Status: Acute Category: Medical Code(s): D69.6 - Thrombocytopenia, unspecified (5) Macrocytosis Status: Acute Category: Medical Code(s): D75.89 - Other specified diseases of blood and blood-forming organs (6) Hypokalemia Status: Acute Category: Medical Code(s):
--- NOTE | 2020-06-29 11:23 | PC.NURSE ---
On assessment pt noted to have raised red bumps on thighs that had spread to cover abdomen and lower back; No itching or symptoms associated with them. Pt also vomited once and reported nausea. Vomitus was yellow, no blood noted. MD notified, new order for 4mg zofran IV q6hr prn. Sponges given to patient to brush teeth with, upon brushing gums they started to bleed so pt stopped and reported it to this RN. Gums appeared bluish/bruised w/ scant amount of bloody drainage and petechiae noted.
--- NOTE | 2020-06-29 13:57 | PC.NURSE ---
Rash-like appearance on abdomen
--- NOTE | 2020-06-29 13:58 | PC.NURSE ---
Rash-like appearance to left upper thigh
--- NOTE | 2020-06-29 13:59 | PC.NURSE ---
Rash-like appearance to rt upper thigh
--- NOTE | 2020-06-29 14:00 | PC.NURSE ---
Bruising to gums
[2020-06-29 17:36] LABS: Basophils % 0.7 % (0.1-2.0); Eosinophils % 0.3 % (0.1-12.0); Hematocrit 34.3 % (37.0-47.0); Hemoglobin 11.3 g/dL (12.2-16.2); Lymphocytes # 1.7 K/mm3 (0.7-4.5); Lymphocytes % 37.6 % (10-50); Mean Corpuscular HGB Conc 32.9 g/dL (31.8-35.4); Mean Corpuscular Hemoglobin 32.9 pg (27.0-31.2); Mean Corpuscular Volume 100.1 fl (81-99); Mean Platelet Volume 11.4 fl (7.4-10.4); Monocytes # 0.2 K/mm3 (0.1-1.0); Monocytes % 3.3 % (1.7-9.3); Neutrophils # 2.6 K/mm3 (1.8-7.8); Neutrophils % 58.1 % (37.0-80.0); Platelet Count 62 K/mm3 (142-424); Red Blood Count 3.42 M/mm3 (4.20-5.40); Red Cell Distribution Width 13.4 % (11.5-17.5); White Blood Count 4.5 K/mm3 (4.8-10.8)
--- NOTE | 2020-06-29 18:46 | PC.NURSE ---
Pt had a bath today, tolerated well. Rt eyelid appears to be bruising some. Dr Chavez notified of 1610 labs. New order for labs requested: B12 now, CMP and CBC for morning. Read back and verified. Tylenol given q4hrs for fever. No new concerns at this time. Report to be given to oncoming nurse.
[2020-06-29 18:59] LABS: Vitamin B12 > 1000 pg/mL (239-931)
--- NOTE | 2020-06-29 19:07 | PC.NURSE ---
report given to joanna
[2020-06-30] VITALS (9 sets, daily range): BP systolic 108–126; BP diastolic 69–81; PULSE 84–130; RESP 16–18; TEMP 38.8–39.5; O2SAT 90–94; BMI 27.2
--- NOTE | 2020-06-30 05:37 | PC.NURSE ---
shift summary, pt has been tachycardic this shift with HR from 120-123, temperatures from 101.9-102.1, temperature treated per OCT, pt lungs CTA, has non productive, hacking cough, bilateral sclera remain red
[2020-06-30 06:55] LABS: Basophils # 0.1 K/mm3 (0-0.2); Basophils % 0.7 % (0.1-2.0); Eosinophils % 0.2 % (0.1-12.0); Hematocrit 35.5 % (37.0-47.0); Hemoglobin 11.5 g/dL (12.2-16.2); Lymphocytes # 2.8 K/mm3 (0.7-4.5); Lymphocytes % 38.5 % (10-50); Mean Corpuscular HGB Conc 32.3 g/dL (31.8-35.4); Mean Corpuscular Hemoglobin 32.7 pg (27.0-31.2); Mean Corpuscular Volume 101.2 fl (81-99); Mean Platelet Volume 12.1 fl (7.4-10.4); Monocytes # 0.2 K/mm3 (0.1-1.0); Monocytes % 3.2 % (1.7-9.3); Neutrophils # 4.1 K/mm3 (1.8-7.8); Neutrophils % 57.4 % (37.0-80.0); Platelet Count 73 K/mm3 (142-424); Red Blood Count 3.51 M/mm3 (4.20-5.40); Red Cell Distribution Width 13.4 % (11.5-17.5); White Blood Count 7.2 K/mm3 (4.8-10.8)
--- NOTE | 2020-06-30 06:58 | PC.NURSE ---
pt does report this morning, that when she coughs she gets short of breath, o2 sats have been 92-96% on room air
[2020-06-30 07:52] LABS: Chloride 104 mmol/L (98-107)
[2020-06-30 07:53] LABS: Potassium 3.5 mmoL/L (3.5-5.1); Sodium 131 mmol/L (136-145)
[2020-06-30 07:55] LABS: Blood Urea Nitrogen 5 mg/dl (7-17); Creatinine Clearance Estimated 112 mL/min (50-200); Estimated Glomerular Filt Rate 80 ml/min (>60); GFR (African American) 97 ML/MIN (>60)
[2020-06-30 07:56] LABS: Alanine Aminotransferase 47 U/L (12-78); Albumin Level 2.7 g/dl (3.5-5.0); Alkaline Phosphatase 109 U/L (38-126); Anion Gap 10.5 mEq/L (5-15); Aspartate Amino Transferase 137 U/L (14-36); Bilirubin,Total 0.5 mg/dl (0.2-1.3); Calcium 7.1 mg/dl (8.4-10.2); Carbon Dioxide 20 mmol/L (22.0-30.0); Globulin 2.8 g/dL (1.3-3.2); Glucose 97 mg/dl (74-100); Total Protein,Serum 5.5 g/dl (6.3-8.2)
--- NOTE | 2020-06-30 08:04 | XR_ITS ---
PROCEDURE: XR CHEST 2V CLINICAL HISTORY: SOA COMPARISON: CR XR CHEST PORTABLE from 06/27/2020 FINDINGS: The cardiomediastinal silhouette and pulmonary vascularity are within normal limits. Bilateral lower lobe infiltrates are present with small bilateral effusions. No acute bony abnormalities. IMPRESSION: Bilateral lower lobe pneumonia with small bilateral effusions Dictated by: Bill Barnes MD 06/30/2020 11:58 Bill Barnes MD in [facility] 06/30/2020 11:58
--- NOTE | 2020-06-30 08:04 | HMH.ACPN2 ---
Internal Medicine - PN: Subj *Date: 06/30/20 *Time: 08:04 Interval history: Patient feels somewhat tired this morning, slept poorly last night. Complains of some mild shortness of air but no cough, no sputum production, no hemoptysis. Gingival discomfort is the same. She is noted no new sites of bleeding. Rash remains unchanged. Exam Vital signs and Labs for Last 24 Hours: Temp Pulse Resp BP Pulse Ox 101.9 F H 123 H 18 123/81 92 L 06/30/20 04:00 06/30/20 04:00 06/30/20 04:00 06/30/20 04:00 06/30/20 04:00 Laboratory Results - last 24 hr 06/29/20 05:44: Vitamin B12 > 1000 H 06/29/20 16:10: WBC 4.5 L, RBC 3.42 L, Hgb 11.3 L, Hct 34.3 L, MCV 100.1 H, MCH 32.9 H, MCHC 32.9, RDW 13.4, Plt Count 62 L, MPV 11.4 H, Neut % (Auto) 58.1, Lymph % (Auto) 37.6, [place] % (Auto) 3.3, Eos % (Auto) 0.3, Baso % (Auto) 0.7, Neut # (Auto) 2.6, Lymph # (Auto) 1.7, [place] # (Auto) 0.2, Eos # (Auto) 0.0, Baso # (Auto) 0.0 06/30/20 06:35: WBC 7.2 D, RBC 3.51 L, Hgb 11.5 L, Hct 35.5 L, MCV 101.2 H, MCH 32.7 H, MCHC 32.3, RDW 13.4, Plt Count 73 L, MPV 12.1 H, Neut % (Auto) 57.4, Lymph % (Auto) 38.5, [place] % (Auto) 3.2, Eos % (Auto) 0.2, Baso % (Auto) 0.7, Neut # (Auto) 4.1, Lymph # (Auto) 2.8, [place] # (Auto) 0.2, Eos # (Auto) 0.0, Baso # (Auto) 0.1 06/30/20 06:35: Sodium 131 L, Potassium 3.5, Chloride 104, Carbon Dioxide 20 L, Anion Gap 10.5, BUN 5 L, Creatinine 0.80, Estimated Creat Clear 112, Estimated GFR 80, Est GFR ( Amer) 97, Glucose 97, Calcium 7.1 L, Total Bilirubin 0.5, AST 137 H, ALT 47, Alkaline Phosphatase 109, Total Protein 5.5 L, Albumin 2.7 L, Globulin 2.8, Albumin/Globulin Ratio 1.0 L I & O for Last 24 hours: Intake & Output 06/27/20 06/28/20 06/29/20 06/30/20 11:59 11:59 11:59 11:59 Intake Total 1397 / 1397 2690 / 2690 3087 / 3087 Balance 1397 / 1397 2690 / 2690 3087 / 3087 Weight 160 lb 157 lb 157 lb 163 lb 7 oz Microbiology Reports for the Last 24 Hours: Microbiology 06/27/20 11:05 Blood Blood Culture - Preliminary NO GROWTH AFTER 48 HOURS 06/27/20 11:05 Blood Blood Culture - Preliminary NO GROWTH AFTER 48 HOURS Narrative: Patient is alert, oriented x3. Continues to have bilateral scleral hemorrhage, gingivitis with mild hemorrhage noted, no posterior pharynx lesions. Lungs have good air movement. No wheezing or crackles or rhonchi. Heart rate regular. No murmurs. No new rash except for the folliculitis appearance on her abdomen and upper thighs. No clubbing or edema noted. She is neurologically intact. Assessment and Plan (1) Acute onset sepsis Status: Acute Category: Medical Code(s): A41.9 - Sepsis, unspecified organism (2) Acute pyelonephritis due to bacteria Status: Acute Category: Medical Code(s): N10 - Acute pyelonephritis; B96.89 - Other specified bacterial agents as the cause of diseases classified elsewhere (3) Flu-like symptoms Status: Acute Category: Medical Code(s): R68.89 - Other general symptoms and signs (4) Thrombocytopenia Status: Acute Category: Medical Code(s): D69.6 - Thrombocytopenia, unspecified (5) Macrocytosis Status: Acute Category: Medical Code(s): D75.89 - Other specified diseases of blood and blood-forming organs (6) Hypokalemia Status: Acute Category: Medical Code(s): E87.6 - Hypokalemia - Assessment and plan all Dx Assessment and Plan for all problems:: Continue current antibiotic therapy. Stop IV fluids given dyspnea, check chest x-ray for possible fluid overload given the significant fluid boluses she has had on admission. Hematology consult today. Platelet count has stabilized. White cell count is improving.
--- NOTE | 2020-06-30 08:10 | PC.NURSE ---
Dr Chavez aware of fever and heart rate.
[2020-06-30 09:41] LABS: Peripheral Smear Review Scanned Result
--- NOTE | 2020-06-30 11:02 | CT_ITS ---
PROCEDURE: CT ANGIO CHEST CLINCIAL INDICATION: PULMONARY EMBOLUS Shortness of air, dyspnea COMPARISON: CT CT ABDOMEN PELVIS W CON from 06/27/2020 TECHNIQUE: IV Contrast: 70ML Isovue 370 Axial images obtained with sagittal and coronal reformats. All CT scans at the facility use one or more dose reduction, viz: automated exposure control, ma/kV adjustment per patient size (including targeted exams where dose is matched to indication, i.e. head), or iterative reconstruction technique. FINDINGS: HEART AND MEDIASTINAL STRUCTURES: No evidence of aortic aneurysm or dissection. Pulmonary artery opacification is less than optimal however, no definite evidence of pulmonary embolus. Normal heart size. There is mild thickening of the pericardium anteriorly and inferiorly. LUNGS AND PLEURAL SPACES: There are small bilateral pleural effusions. There is mild alveolar opacification in both lower lobes right greater than left which may be due to areas of atelectasis and/or infiltrate. BONY STRUCTURES: No acute bony abnormalities apparent. UPPER ABDOMEN: Low-density changes are present within the liver along the region of the falciform ligament consistent with fatty infiltration. There is an additional area of decreased attenuation in the left hepatic lobe posteriorly at the gallbladder fossa region which could also be due to fatty infiltration. Follow-up may confirm and to exclude underlying liver lesion. ADDITIONAL FINDINGS: No other significant abnormalities. IMPRESSION: Bilateral lower lobe pneumonia and/or atelectatic change with small bilateral effusions Nonspecific low-density areas of the liver Dictated by: Bill Barnes MD 06/30/2020 11:57 Bill Barnes MD in [facility] 06/30/2020 11:57
--- NOTE | 2020-06-30 11:02 | HMH.PULMCON ---
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 coli has been admitted for the last 3 days and green treated with ceftriaxone azithromycin for possible UTI complained of subacute onset dyspnea from yesterday night. Patient denies any cough or any productive phlegm. Patient is a former smoker last smoked 20 years ago only 2-pack-year smoking history. Denies any baseline respiratory complaints. Pulmonary was called to evaluate for patient's dyspnea [facility] History Medical History: Denies:: Cancer, Diabetes Mellitus Type 1, Diabetes Mellitus Type 2, MRSA *Have you ever received a pneumonia vaccine?: No *Have you received a flu vaccine this season?: No Other Surgeries: Yes: Other (ureter surgery) Amputation: No - *Social History Last grade of school completed: Advanced degree Alcohol Intake: current Alcohol Intake Frequency:: holidays/special occasions only *Occupational Status:: employed Housing: house Household Members: children *Travel in the last 8 weeks: None Family Hx:: Cancer ROS - Cons Reports body ache(s), Reports chills, Reports fatigue - Eyes Denies blind spots, Denies blurry vision - ENT Reports bleeding gums, Denies abnormal hearing - Card Reports shortness of breath, Reports shortness of breath with activity, Denies chest pain, Denies chest pain at rest - Resp Respiratory: Yes chest congestion, No cough, No non-productive cough, Yes dyspnea, Yes dyspnea on exertion, No excessive phlegm production, No coughing up blood, No pain on inspiration, No pain with cough, No cough with sputum production, No snoring, No stridor - GI Gastrointestingal: Denies: change in bowel habits, change in stool character - [place] Musculoskeletal: Reports system reviewed and no additional complaints, except as docu Meds Home Medications Medication Instructions Recorded Confirmed Type Phenazopyridine HCl [Pyridium 200 mg PO TID 06/27/20 06/27/20 History 200mg Tablet] Sulfamethoxazole/Trimethoprim 1 each PO BID 06/27/20 06/27/20 History [Bactrim DS tablet] Allergies Allergy/AdvReac Type Severity Reaction Status Date / Time No Known Allergies Allergy Verified 06/27/20 11:00 Exam Radiology reports for Last 24 Hours: Chest x-ray from this morning showed trace bilateral pleural effusions along with increased vascular markings. There is also an evidence of bilateral lower lobe airspace disease, especially on the right which can be atelectasis and a nodular appearing opacity in the left lower lobe - Constitutional Constitutional:: no acute distress, comfortable, healthy appearing - HENMT Exam HENMT: normocephalic - Eye Exam Eyes:: normal appearance both eyes and related structures - Neck Exam Neck:: normal visual inspection, thyroid normal, no lymphadenopathy - Respiratory Exam Respiratory:: able to speak in complete sentences, normal breath sounds, no respiratory distress, normal respiratory effort - Cardiovascular Exam Cardiac:: regular rhythm, S1, S2 - GI Exam GI:: soft, no hepatosplenomegaly - Skin Exam Comments: Diffuse pustular lesions of same aged were noted on her belly no lesions on palmar and plantar surfaces noted - Neurological Exam Neurological: alert, awake, oriented X3 - Extremities Exam Extremities: no cyanosis, no clubbing Internal Medicine - CN: Reslt - Labs CBC & Chem 7: 06/30/20 06:35 06/30/20 06:35 Labs: Short CBC 06/29/20 06/30/20 Range/Units 16:10 06:35 WBC 4.5 L 7.2 D (4.8-10.8) K/mm3 Hgb 11.3 L 11.5 L (12.2-16.2) g/dL Hct 34.3 L 35.5 L (37.0-47.0) % Plt Count 62 L 73 L (142-424) K/mm3 [facility] 06/30/20 06:35 Sodium 131 L Potassium 3.5 Chloride 104 Carbon Dioxide 20 L BUN 5 L Creatinine 0.80 Glucose 9
[2020-06-30 11:47] LABS: Haptoglobin 136 mg/dL (33-278)
[2020-06-30 11:47] LABS: Cytomegalovirus (CMV) Ab, IgG <0.60 U/mL (0.00-0.59); Cytomegalovirus (CMV) Ab, IgM 30.2 AU/mL (0.0-29.9)
[2020-06-30 16:39] LABS: Basophils % 0.5 % (0.1-2.0); Eosinophils % 0.1 % (0.1-12.0); Hemoglobin 11.8 g/dL (12.2-16.2); Lymphocytes % 26.6 % (10-50); Mean Corpuscular HGB Conc 33.8 g/dL (31.8-35.4); Mean Corpuscular Hemoglobin 33.8 pg (27.0-31.2); Mean Platelet Volume 12.5 fl (7.4-10.4); Monocytes # 0.3 K/mm3 (0.1-1.0); Monocytes % 4.1 % (1.7-9.3); Neutrophils # 5.1 K/mm3 (1.8-7.8); Neutrophils % 68.7 % (37.0-80.0); Platelet Count 87 K/mm3 (142-424); Red Cell Distribution Width 13.8 % (11.5-17.5); White Blood Count 7.4 K/mm3 (4.8-10.8)
--- NOTE | 2020-06-30 17:20 | HMH.CONS ---
*Admission Date: 06/27/20 *History of present illness: pt admitted and treated for e coli uti. she reports cough and sob. she reports several day h/o high fevers before admission. she is on rocephin and zithromax. her cbc on admission noted thrombocytopenia that declined over a couple of days and today was improving. she also noted over past couple of days to have leukopenia but today is normal. coags were normal. she is feeling some better since admission but still with cough and weak. pt has noted bilateral subconjunctival hemorrhage. she has no vision change or eye pain. she also reports sore gums. she has no petichae and denies bleeding. [facility] History Medical History: Denies:: Cancer, Diabetes Mellitus Type 1, Diabetes Mellitus Type 2, MRSA *Have you ever received a pneumonia vaccine?: No *Have you received a flu vaccine this season?: No Other Surgeries: Yes: Other (ureter surgery) Amputation: No - *Social History Last grade of school completed: Advanced degree Alcohol Intake: current Alcohol Intake Frequency:: holidays/special occasions only *Occupational Status:: employed Housing: house Household Members: children *Travel in the last 8 weeks: None Family Hx:: Cancer Review of Systems - Review of Systems Review of systems:: pertinent systems reviewed and negative unless documented below - *Neurologic Denies abnormal hearing, Denies headache(s) Meds Home Medications Medication Instructions Recorded Confirmed Type Phenazopyridine HCl [Pyridium 200 mg PO TID 06/27/20 06/27/20 History 200mg Tablet] Sulfamethoxazole/Trimethoprim 1 each PO BID 06/27/20 06/27/20 History [Bactrim DS tablet] Allergies Allergy/AdvReac Type Severity Reaction Status Date / Time No Known Allergies Allergy Verified 06/27/20 11:00 Exam Vital signs and Labs for Last 24 Hours: Temp Pulse Resp BP Pulse Ox 103.1 F H 130 H 18 126/69 93 L 06/30/20 14:49 06/30/20 08:15 06/30/20 08:00 06/30/20 08:00 06/30/20 08:15 Laboratory Results - last 24 hr 06/28/20 05:40: CMV IgG Ab <0.60, CMV IgM Ab 30.2 H 06/28/20 16:44: Haptoglobin 136 06/29/20 05:44: Vitamin B12 > 1000 H 06/29/20 16:10: WBC 4.5 L, RBC 3.42 L, Hgb 11.3 L, Hct 34.3 L, MCV 100.1 H, MCH 32.9 H, MCHC 32.9, RDW 13.4, Plt Count 62 L, MPV 11.4 H, Neut % (Auto) 58.1, Lymph % (Auto) 37.6, [place] % (Auto) 3.3, Eos % (Auto) 0.3, Baso % (Auto) 0.7, Neut # (Auto) 2.6, Lymph # (Auto) 1.7, [place] # (Auto) 0.2, Eos # (Auto) 0.0, Baso # (Auto) 0.0 06/30/20 06:35: WBC 7.2 D, RBC 3.51 L, Hgb 11.5 L, Hct 35.5 L, MCV 101.2 H, MCH 32.7 H, MCHC 32.3, RDW 13.4, Plt Count 73 L, MPV 12.1 H, Neut % (Auto) 57.4, Lymph % (Auto) 38.5, [place] % (Auto) 3.2, Eos % (Auto) 0.2, Baso % (Auto) 0.7, Neut # (Auto) 4.1, Lymph # (Auto) 2.8, [place] # (Auto) 0.2, Eos # (Auto) 0.0, Baso # (Auto) 0.1 06/30/20 06:35: Sodium 131 L, Potassium 3.5, Chloride 104, Carbon Dioxide 20 L, Anion Gap 10.5, BUN 5 L, Creatinine 0.80, Estimated Creat Clear 112, Estimated GFR 80, Est GFR ( Amer) 97, Glucose 97, Calcium 7.1 L, Total Bilirubin 0.5, AST 137 H, ALT 47, Alkaline Phosphatase 109, Total Protein 5.5 L, Albumin 2.7 L, Globulin 2.8, Albumin/Globulin Ratio 1.0 L 06/30/20 16:26: WBC 7.4, RBC 3.50 L, Hgb 11.8 L, Hct 35.0 L, MCV 100.0 H, MCH 33.8 H, MCHC 33.8, RDW 13.8, Plt Count 87 L, MPV 12.5 H, Neut % (Auto) 68.7, Lymph % (Auto) 26.6, [place] % (Auto) 4.1, Eos % (Auto) 0.1, Baso % (Auto) 0.5, Neut # (Auto) 5.1, Lymph # (Auto) 2.0, [place] # (Auto) 0.3, Eos # (Auto) 0.0, Baso # (Auto) 0.0 I & O for Last 24 hours: Intake & Output 06/28/20 06/29/20 06/30/20 07/01/20 11:59 11:59 11:59 11:59 Intake Total 1397 / 1397 2690 / 2690 3207 / 3207 Balance 1397 / 1397 2690 / 2690 3207 / 3207 Weight 157 lb 157 lb 163 lb 7 oz - *Routine HEENT Exam Comments: bilateral subconjunctival hemorrhage - *Routine Respiratory Exam Present: decreased breath sounds Internal Medicine - CN: Reslt - Labs CBC & C
[2020-06-30 17:42] LABS: Activated Partial Thrombo Time 31.3 seconds (23.6-34.0); Prothrombin Time 13.1 seconds (9.4-11.8)
[2020-06-30 17:58] LABS: Fibrinogen 118 mg/dL (204-500)
--- NOTE | 2020-06-30 19:00 | PC.NURSE ---
A&OX4. PT HAS TOLERATED ROOM AIR WELL THROUGHOUT SHIFT. RESPIRATIONS REGULAR AND UNLABORED. COARSE CRACKLES NOTED THROUGHOUT. OCCASIONAL DRY, HACKING COUGH NOTED. PT IS AWARE OF NEED FOR SPUTUM CULTURE BUT STATES SHE ISN'T COUGHING ANYTHING UP. ACTIVE BOWEL SOUNDS HEARD IN ALL 4 QUADRANTS. SOFT AND NONTENDER ABDOMEN. NO BM REPORTED. PT VOIDS INDEPENDENTLY PER TOILET. HAND SEED CONE PICKER EQUAL. +2 PULSES NOTED THROUGHOUT. RASH NOTED TO BACK, ABDOMEN, AND BILATERAL THIGHS. PT HAS HAD A FEVER THREE TIMES THIS SHIFT AND RECEIVED TYLENOL AT THREE TIMES. PT HAS BEEN OCCASIONAL SOB THROUGHOUT SHIFT. MD AWARE. RESPIRATORY REPORTED O2 OFF 88%. THIS NURSE WENT AND CHECKED IT AND IT WAS 94% ON RA. WILL CONTINUE TO MONITOR. NO REPORTS OF PAIN THROUGHOUT SHIFT. PT IS CURRENTLY LYING IN BED. CALL LIGHT WITHIN REACH. BED IN LOWEST POSITION. VSS. WILL CONTINUE TO MONITOR.
--- NOTE | 2020-06-30 22:19 | PC.NURSE ---
2100 COURTESY ROUND PT ASLEEP AT THIS TIME . TRASH AND LINENS EMPTIED .
[2020-07-01] VITALS (13 sets, daily range): BP systolic 113–125; BP diastolic 65–75; PULSE 110–131; RESP 16–19; TEMP 37.4–39.5; O2SAT 88–97; BMI 27.3
--- NOTE | 2020-07-01 04:26 | PC.NURSE ---
Primary RN notified of low O2 sat.
--- NOTE | 2020-07-01 06:16 | PC.NURSE ---
shift summary, pt has had a temperature of 102.2-103.1, treated per OCT, O2 sats 88-94%, 88% at 0400, pt placed on 2L NC, O2 has increased to 91% as of 0600, pt does complain of some SOA, coarse crackles noted on auscultation, has remained tachycardic this shift, HR 122-131, pt has had no complaints of chest pain
[2020-07-01 06:31] LABS: Basophils % 0.4 % (0.1-2.0); Chloride 103 mmol/L (98-107); Eosinophils % 0.2 % (0.1-12.0); Hemoglobin 11.5 g/dL (12.2-16.2); Lymphocytes % 26.6 % (10-50); Mean Corpuscular HGB Conc 33.9 g/dL (31.8-35.4); Mean Corpuscular Hemoglobin 33.9 pg (27.0-31.2); Mean Corpuscular Volume 99.9 fl (81-99); Mean Platelet Volume 11.7 fl (7.4-10.4); Monocytes # 0.3 K/mm3 (0.1-1.0); Monocytes % 3.7 % (1.7-9.3); Neutrophils # 5.1 K/mm3 (1.8-7.8); Neutrophils % 69.1 % (37.0-80.0); Platelet Count 102 K/mm3 (142-424); Red Cell Distribution Width 13.8 % (11.5-17.5); White Blood Count 7.4 K/mm3 (4.8-10.8)
[2020-07-01 06:32] LABS: Potassium 3.5 mmoL/L (3.5-5.1); Sodium 131 mmol/L (136-145)
[2020-07-01 06:34] LABS: Alanine Aminotransferase 43 U/L (12-78); Alkaline Phosphatase 97 U/L (38-126); Aspartate Amino Transferase 130 U/L (14-36); Bilirubin,Total 0.4 mg/dl (0.2-1.3); Blood Urea Nitrogen 7 mg/dl (7-17); Creatinine Clearance Estimated 112 mL/min (50-200); Estimated Glomerular Filt Rate 80 ml/min (>60); GFR (African American) 97 ML/MIN (>60)
[2020-07-01 06:35] LABS: Albumin Level 2.6 g/dl (3.5-5.0); Anion Gap 8.5 mEq/L (5-15); Calcium 7.2 mg/dl (8.4-10.2); Carbon Dioxide 23 mmol/L (22.0-30.0); Globulin 2.7 g/dL (1.3-3.2); Glucose 106 mg/dl (74-100); Total Protein,Serum 5.3 g/dl (6.3-8.2)
--- NOTE | 2020-07-01 07:07 | HMH.ACPN2 ---
Internal Medicine - PN: Subj *Date: 07/01/20 *Time: 15:45 Interval history: 40-year-old female who continues to have fevers overnight. Intermittent oxygen use. Denies chest pain, nausea, vomiting. Still having loose stools however they are to her baseline level. Tolerating slight increase in p.o. intake. Overall feels a little bit more energetic today but still very tired. Dry cough gradually improving. Reviewed labs this morning, no new bleeding. Slight increase in patient's thrombocytopenia. Platelets at 100,000 today. Has had some slight confusion when her fever spike but it resolves with improvement in her temperature Exam Vital signs and Labs for Last 24 Hours: Temp Pulse Resp BP Pulse Ox 103.1 F H 131 H 16 115/71 91 L 07/01/20 04:00 07/01/20 04:00 07/01/20 04:00 07/01/20 04:00 07/01/20 06:35 Laboratory Results - last 24 hr 06/28/20 05:40: CMV IgG Ab <0.60, CMV IgM Ab 30.2 H 06/28/20 16:44: Haptoglobin 136 06/30/20 06:35: WBC 7.2 D, RBC 3.51 L, Hgb 11.5 L, Hct 35.5 L, MCV 101.2 H, MCH 32.7 H, MCHC 32.3, RDW 13.4, Plt Count 73 L, MPV 12.1 H, Neut % (Auto) 57.4, Lymph % (Auto) 38.5, [place] % (Auto) 3.2, Eos % (Auto) 0.2, Baso % (Auto) 0.7, Neut # (Auto) 4.1, Lymph # (Auto) 2.8, [place] # (Auto) 0.2, Eos # (Auto) 0.0, Baso # (Auto) 0.1 06/30/20 06:35: Sodium 131 L, Potassium 3.5, Chloride 104, Carbon Dioxide 20 L, Anion Gap 10.5, BUN 5 L, Creatinine 0.80, Estimated Creat Clear 112, Estimated GFR 80, Est GFR ( Amer) 97, Glucose 97, Calcium 7.1 L, Total Bilirubin 0.5, AST 137 H, ALT 47, Alkaline Phosphatase 109, Total Protein 5.5 L, Albumin 2.7 L, Globulin 2.8, Albumin/Globulin Ratio 1.0 L 06/30/20 16:26: WBC 7.4, RBC 3.50 L, Hgb 11.8 L, Hct 35.0 L, MCV 100.0 H, MCH 33.8 H, MCHC 33.8, RDW 13.8, Plt Count 87 L, MPV 12.5 H, Neut % (Auto) 68.7, Lymph % (Auto) 26.6, [place] % (Auto) 4.1, Eos % (Auto) 0.1, Baso % (Auto) 0.5, Neut # (Auto) 5.1, Lymph # (Auto) 2.0, [place] # (Auto) 0.3, Eos # (Auto) 0.0, Baso # (Auto) 0.0 06/30/20 17:12: PT 13.1 H, INR 1.20 H, APTT 31.3, Fibrinogen 118 L 07/01/20 06:02: WBC 7.4, RBC 3.40 L, Hgb 11.5 L, Hct 34.0 L, MCV 99.9 H, MCH 33.9 H, MCHC 33.9, RDW 13.8, Plt Count 102 L, MPV 11.7 H, Neut % (Auto) 69.1, Lymph % (Auto) 26.6, [place] % (Auto) 3.7, Eos % (Auto) 0.2, Baso % (Auto) 0.4, Neut # (Auto) 5.1, Lymph # (Auto) 2.0, [place] # (Auto) 0.3, Eos # (Auto) 0.0, Baso # (Auto) 0.0 07/01/20 06:02: Sodium 131 L, Potassium 3.5, Chloride 103, Carbon Dioxide 23, Anion Gap 8.5, BUN 7 D, Creatinine 0.80, Estimated Creat Clear 112, Estimated GFR 80, Est GFR ( Amer) 97, Glucose 106 H, Calcium 7.2 L, Total Bilirubin 0.4, AST 130 H, ALT 43, Alkaline Phosphatase 97, Total Protein 5.3 L, Albumin 2.6 L, Globulin 2.7, Albumin/Globulin Ratio 1.0 L I & O for Last 24 hours: Intake & Output 06/28/20 06/29/20 06/30/20 11/06/20 23:59 23:59 23:59 23:59 Intake Total 1876 4003 / 4123 2461 / 2581 120 / 120 Balance 1876 4003 / 4123 2461 / 2581 120 / 120 Weight 71.214 kg 71.214 kg 74.134 kg 74.446 kg - Constitutional no acute distress Comments: fatigued - *Routine HEENT Exam Head: Present: normocephalic Eye: Present: EOMI, PERRL ENT: Present: mucous membranes moist Comments: bilateral conjunctival hemorrhage; bruising of gums. - *Routine Neck Exam Present: supple. Absent: lymphadenopathy - *Routine Respiratory Exam Present: CTA bilaterally (in anterior lung bae; crackles in posterior bilateral lower lung bae). Absent: wheezes - *Routine Cardiovascular Exam Present: RRR - *Routine Abdominal Exam Present: soft, normoactive bowel sounds. Absent: tenderness - *Routine Extremities Exam Absent: cyanosis, clubbing, edema - *Routine Skin Exam Present: warm. Absent: rash - *Routine Neurological Exam Present: alert, oriented X3 Assessment and Plan (1) CMV infection, acute Status: Acute Category: Medical Code(s): B25.9 - Cytomegaloviral disease, unspecified Continu
--- NOTE | 2020-07-01 08:31 | PC.NURSE ---
RN aware of elevated temp.
--- NOTE | 2020-07-01 09:19 | PC.NURSE ---
Received a call from Razia Santos RN. Per Dr Caro she would like for me to put in a stat order in for fibrinogen. Order placed and Dr Lorenzo office notified.
--- NOTE | 2020-07-01 09:37 | PC.NURSE ---
Pt has mom and sister flying in from [facility], she asked if both could visit. I explained out visitor policy that only one person can visit at a time. She requested I ask the corporate travel manager if they would make an exception. Request was brought to Asaf Rodriguez RN Manager who stated pt could have 1 visitor in the room at a time and they could utilize the front lobby while taking turns.
--- NOTE | 2020-07-01 10:09 | P.PN_ITS ---
Internal Medicine - PN: Subj *Date: 07/01/20 *Time: 10:18 Interval history: No acute respiratory events overnight Exam - Constitutional Constitutional:: no acute distress, comfortable - HENMT Exam HENMT: normocephalic, atraumatic - Respiratory Exam Respiratory:: able to speak in complete sentences Comments: Bilateral predominantly lower lobe coarse breath sounds - Neurological Exam Neurological: alert, awake, oriented X3 Assessment and Plan (1) Acute onset sepsis Status: Acute Category: Medical Code(s): A41.9 - Sepsis, unspecified organism (2) Acute pyelonephritis due to bacteria Status: Acute Category: Medical Code(s): N10 - Acute pyelonephritis; B96.89 - Other specified bacterial agents as the cause of diseases classified elsewhere (3) Flu-like symptoms Status: Acute Category: Medical Code(s): R68.89 - Other general symptoms and signs (4) Thrombocytopenia Status: Acute Category: Medical Code(s): D69.6 - Thrombocytopenia, unspecified (5) Macrocytosis Status: Acute Category: Medical Code(s): D75.89 - Other specified diseases of blood and blood-forming organs (6) Hypokalemia Status: Acute Category: Medical Code(s): E87.6 - Hypokalemia - Assessment and plan all Dx Assessment and Plan for all problems:: #Dyspnea: #Community-acquired pneumonia: 40-year-old female no prior respiratory complaints presented with generalized weakness and fevers along with thrombocytopenia diffuse pustular rash, no respiratory complaints on presentation, yesterday complained of subacute onset of dyspnea and has been relatively stable. Denies any cough or productive phlegm Respiratory viral PCR on COVID-19 antibody serology resulted negative. Blood cultures no growth 48 hours. D-dimer elevated at 8.1. No calf tenderness noted. Urine cultures from 06/26/2020 +ve for E. coli. COVID-19 PCR negative from the same day Hemodynamically stable. Renal function and mentation stable. Denies any prior history of blood clots. No family history of blood clots. Interval update: Given subacute onset dyspnea andCT-PE was ordered, negative for any pulmonary t hromboembolus. However patient showed bilateral lower lobe infiltrates along with bilateral pleural effusions. Serum CMV IgM antibody is positive. Platelet count improving. CT also showed bilateral lower lobe groundglass opacities, unclear of the etiology at this point of time as this can be CMV pneumonitis / volume obverload. Patient does not appear to be in any respiratory distress, remains on room air. Her immune status along with further clinical course will decide whether patient needs transbronchial lung BX to evaluate for any invasive disease. Plan: - Continue ceftriaxone and azithromycin for possible community-acquired pneumonia x 5 days - Sputum induction for cultures - Follow with urine Legionella antigen - Duo Nebs Q 6hrrs PRN #The above plan plan discussed with Dr. Miles in person including her positive CMV serologies and the need for treatment for active CMV section in the setting of improving platelet counts. Discussed regarding ordering viral PCR and evaluate for immunocompromise status in this patient. Pulmonary will sign off at this point of time. If her further clinical course warrants a tissue diagnosis with transbronchial lung biopsy to evaluate for inv asive CMV disease please call pulmonary. #Rest of the management as per primary team
[2020-07-01 10:10] LABS: Fibrinogen 128 mg/dL (204-500)
[2020-07-01 10:21] LABS: EBV Ab VCA, IgM <36.0 U/mL (0.0-35.9); EBV Nuclear Antigen Ab, IgG <18.0 U/mL (0.0-17.9)
--- NOTE | 2020-07-01 11:06 | P.PN_ITS ---
Internal Medicine - PN: Subj *Date: 07/01/20 *Time: 11:06 Exam Vital signs and Labs for Last 24 Hours: Temp Pulse Resp BP Pulse Ox 102.5 F H 121 H 16 121/65 96 07/01/20 08:00 07/01/20 08:00 07/01/20 08:00 07/01/20 08:00 07/01/20 08:00 Laboratory Results - last 24 hr 06/28/20 05:40: CMV IgG Ab <0.60, CMV IgM Ab 30.2 H, EBV Capsid Ag IgG Ab 222.0 H, EBV Capsid Ag IgM Ab <36.0, EBV Nuclear Ag IgG Ab <18.0, EBV Interpretation Comment 06/28/20 16:44: Haptoglobin 136 06/30/20 16:26: WBC 7.4, RBC 3.50 L, Hgb 11.8 L, Hct 35.0 L, MCV 100.0 H, MCH 33.8 H, MCHC 33.8, RDW 13.8, Plt Count 87 L, MPV 12.5 H, Neut % (Auto) 68.7, Lymph % (Auto) 26.6, [place] % (Auto) 4.1, Eos % (Auto) 0.1, Baso % (Auto) 0.5, Neut # (Auto) 5.1, Lymph # (Auto) 2.0, [place] # (Auto) 0.3, Eos # (Auto) 0.0, Baso # (Auto) 0.0 06/30/20 17:12: PT 13.1 H, INR 1.20 H, APTT 31.3, Fibrinogen 118 L 07/01/20 06:02: WBC 7.4, RBC 3.40 L, Hgb 11.5 L, Hct 34.0 L, MCV 99.9 H, MCH 33.9 H, MCHC 33.9, RDW 13.8, Plt Count 102 L, MPV 11.7 H, Neut % (Auto) 69.1, Lymph % (Auto) 26.6, [place] % (Auto) 3.7, Eos % (Auto) 0.2, Baso % (Auto) 0.4, Neut # (Auto) 5.1, Lymph # (Auto) 2.0, [place] # (Auto) 0.3, Eos # (Auto) 0.0, Baso # (Auto) 0.0 07/01/20 06:02: Sodium 131 L, Potassium 3.5, Chloride 103, Carbon Dioxide 23, Anion Gap 8.5, BUN 7 D, Creatinine 0.80, Estimated Creat Clear 112, Estimated GFR 80, Est GFR ( Amer) 97, Glucose 106 H, Calcium 7.2 L, Total Bilirubin 0.4, AST 130 H, ALT 43, Alkaline Phosphatase 97, Total Protein 5.3 L, Albumin 2.6 L, Globulin 2.7, Albumin/Globulin Ratio 1.0 L 07/01/20 09:25: Fibrinogen 128 L I & O for Last 24 hours: Intake & Output 06/28/20 06/29/20 06/30/20 07/01/20 23:59 23:59 23:59 23:59 Intake Total 1872176 4003 / 4123 2461 / 2581 240 / 240 Balance 1877 / 7 4003 / 4123 2461 / 2581 240 / 240 Weight 71.214 kg 71.214 kg 74.134 kg 74.446 kg Assessment and Plan (1) Acute onset sepsis Status: Acute Category: Medical Code(s): A41.9 - Sepsis, unspecified organism (2) Acute pyelonephritis due to bacteria Status: Acute Category: Medical Code(s): N10 - Acute pyelonephritis; B96.89 - Other specified bacterial agents as the cause of diseases classified elsewhere (3) Flu-like symptoms Status: Acute Category: Medical Code(s): R68.89 - Other general symptoms and signs (4) Thrombocytopenia Status: Acute Category: Medical Code(s): D69.6 - Thrombocytopenia, unspecified (5) Macrocytosis Status: Acute Category: Medical Code(s): D75.89 - Other specified diseases of blood and blood-forming organs (6) Hypokalemia Status: Acute Category: Medical Code(s): E87.6 - Hypokalemia The patient's infection will respond to the chosen ABx?: Yes Is the patient receiving the right drug, dose, and route?: Yes Could a more targeted ABx be ordered?: No (AWAITING CULTURES)
--- NOTE | 2020-07-01 12:00 | PC.NURSE ---
Late Entry: Notified RT in person that pt has a sputum ordered and for the need to attempt to induce.
--- NOTE | 2020-07-01 14:32 | PC.NURSE ---
Pt given neb treatment with saline at this time. Pt had no results but has cup at bedside and was asked to call when she has a sample.
--- NOTE | 2020-07-01 14:40 | HMH.ACPN2 ---
Internal Medicine - PN: Subj *Date: 07/01/20 *Time: 14:40 Interval history: pt feeling some better today. wbc and plts are improving. fibrinogen is low but improving. fever curve improving this afternoon. no bleeding. dx with cmv. Exam Vital signs and Labs for Last 24 Hours: Temp Pulse Resp BP Pulse Ox 99.4 F 110 H 16 121/65 96 07/01/20 13:00 07/01/20 13:00 07/01/20 08:00 07/01/20 08:00 07/01/20 08:00 Laboratory Results - last 24 hr 06/28/20 05:40: EBV Capsid Ag IgG Ab 222.0 H, EBV Capsid Ag IgM Ab <36.0, EBV Nuclear Ag IgG Ab <18.0, EBV Interpretation Comment 06/30/20 16:26: WBC 7.4, RBC 3.50 L, Hgb 11.8 L, Hct 35.0 L, MCV 100.0 H, MCH 33.8 H, MCHC 33.8, RDW 13.8, Plt Count 87 L, MPV 12.5 H, Neut % (Auto) 68.7, Lymph % (Auto) 26.6, [place] % (Auto) 4.1, Eos % (Auto) 0.1, Baso % (Auto) 0.5, Neut # (Auto) 5.1, Lymph # (Auto) 2.0, [place] # (Auto) 0.3, Eos # (Auto) 0.0, Baso # (Auto) 0.0 06/30/20 17:12: PT 13.1 H, INR 1.20 H, APTT 31.3, Fibrinogen 118 L 07/01/20 06:02: WBC 7.4, RBC 3.40 L, Hgb 11.5 L, Hct 34.0 L, MCV 99.9 H, MCH 33.9 H, MCHC 33.9, RDW 13.8, Plt Count 102 L, MPV 11.7 H, Neut % (Auto) 69.1, Lymph % (Auto) 26.6, [place] % (Auto) 3.7, Eos % (Auto) 0.2, Baso % (Auto) 0.4, Neut # (Auto) 5.1, Lymph # (Auto) 2.0, [place] # (Auto) 0.3, Eos # (Auto) 0.0, Baso # (Auto) 0.0 07/01/20 06:02: Sodium 131 L, Potassium 3.5, Chloride 103, Carbon Dioxide 23, Anion Gap 8.5, BUN 7 D, Creatinine 0.80, Estimated Creat Clear 112, Estimated GFR 80, Est GFR ( Amer) 97, Glucose 106 H, Calcium 7.2 L, Total Bilirubin 0.4, AST 130 H, ALT 43, Alkaline Phosphatase 97, Total Protein 5.3 L, Albumin 2.6 L, Globulin 2.7, Albumin/Globulin Ratio 1.0 L 07/01/20 09:25: Fibrinogen 128 L I & O for Last 24 hours: Intake & Output 06/29/20 06/30/20 07/01/20 07/02/20 11:59 11:59 11:59 11:59 Intake Total 2690 / 2690 3207 / 3207 1287 / 1287 Balance 2690 / 2690 3207 / 3207 1287 / 1287 Weight 157 lb 163 lb 7 oz 164 lb 2 oz Assessment and Plan (1) Acute onset sepsis Status: Acute Category: Medical Code(s): A41.9 - Sepsis, unspecified organism (2) Acute pyelonephritis due to bacteria Status: Acute Category: Medical Code(s): N10 - Acute pyelonephritis; B96.89 - Other specified bacterial agents as the cause of diseases classified elsewhere (3) Flu-like symptoms Status: Acute Category: Medical Code(s): R68.89 - Other general symptoms and signs (4) Thrombocytopenia Status: Acute Category: Medical Code(s): D69.6 - Thrombocytopenia, unspecified (5) Macrocytosis Status: Acute Category: Medical Code(s): D75.89 - Other specified diseases of blood and blood-forming organs (6) Hypokalemia Status: Acute Category: Medical Code(s): E87.6 - Hypokalemia - Assessment and plan all Dx Assessment and Plan for all problems:: 40 admitted with infection. cmv +. being treated for community aquired pna with abx and + e coli uti. clinically appears to be improving. counts are improving and fibrinogen is improving. would not give cyro unless fibrinogen falls below 100. would not give plts. as disease course improves I expect her counts to improve as well.
--- NOTE | 2020-07-01 17:12 | PC.NURSE ---
Alert and oriented x3. Coarse breath sounds noted to bilateral lower lobes. Pt was weaned to room air by 1200. O2 has remained in the upper 90's since. Incentive spirometer given to patient and instructed on use. Temp of 102.5 this am. Tylenol administered q4hrs with most recent temp 99.4 oral. She states she does feel somewhat better. IV to LAC changed, new one placed in LFA by Asaf De La Torre RN. Pt had a shower and a BM today. Appetite very poor, pt requested that lunch and dinner be held. No questions or concerns from pt at this time. Will continue to monitor.
--- NOTE | 2020-07-01 18:13 | PC.NURSE ---
since obtaining care of patient only complaint was of being cold and shivering. checked temp and noted to be running fever. tylenol administered. independent in room vitals stable. eyes remain red. will continue to monitor,
--- NOTE | 2020-07-01 18:30 | PC.NURSE ---
Attempted to take pictures of eyes and mouth per H CHELSEY Rodriguez Manager. Pt would like to hold off, states maybe when shes feeling better.
--- NOTE | 2020-07-01 18:58 | PC.NURSE ---
let patient know we need another urine sample
[2020-07-02] VITALS (7 sets, daily range): BP systolic 98–115; BP diastolic 65–72; PULSE 103–138; RESP 16–20; TEMP 37.4–39.4; O2SAT 90–96; BMI 26.3
[2020-07-02 05:59] LABS: Basophils % 0.5 % (0.1-2.0); Eosinophils % 0.4 % (0.1-12.0); Hematocrit 35.2 % (37.0-47.0); Hemoglobin 11.7 g/dL (12.2-16.2); Lymphocytes # 1.6 K/mm3 (0.7-4.5); Lymphocytes % 25.2 % (10-50); Mean Corpuscular HGB Conc 33.2 g/dL (31.8-35.4); Mean Corpuscular Hemoglobin 33.8 pg (27.0-31.2); Mean Corpuscular Volume 101.8 fl (81-99); Mean Platelet Volume 12.7 fl (7.4-10.4); Monocytes # 0.3 K/mm3 (0.1-1.0); Monocytes % 3.9 % (1.7-9.3); Neutrophils # 4.5 K/mm3 (1.8-7.8); Neutrophils % 70.1 % (37.0-80.0); Platelet Count 108 K/mm3 (142-424); Red Blood Count 3.46 M/mm3 (4.20-5.40); Red Cell Distribution Width 14.1 % (11.5-17.5); White Blood Count 6.4 K/mm3 (4.8-10.8)
[2020-07-02 06:19] LABS: Chloride 102 mmol/L (98-107); Potassium 3.6 mmoL/L (3.5-5.1); Sodium 131 mmol/L (136-145)
[2020-07-02 06:21] LABS: Blood Urea Nitrogen 8 mg/dl (7-17); Creatinine Clearance Estimated 108 mL/min (50-200); Estimated Glomerular Filt Rate 80 ml/min (>60); GFR (African American) 97 ML/MIN (>60)
[2020-07-02 06:22] LABS: Alanine Aminotransferase 39 U/L (12-78); Albumin Level 2.6 g/dl (3.5-5.0); Alkaline Phosphatase 94 U/L (38-126); Anion Gap 11.6 mEq/L (5-15); Aspartate Amino Transferase 109 U/L (14-36); Bilirubin,Total 0.4 mg/dl (0.2-1.3); Calcium 7.3 mg/dl (8.4-10.2); Carbon Dioxide 21 mmol/L (22.0-30.0); Globulin 2.7 g/dL (1.3-3.2); Glucose 106 mg/dl (74-100); Magnesium 2.1 mg/dl (1.6-2.3); Total Protein,Serum 5.3 g/dl (6.3-8.2)
--- NOTE | 2020-07-02 06:54 | PC.NURSE ---
shift summary, pt has rested much better this as compared to the past 2 night shifts, states she is feeling better, has had a temperature from 99.9 to 103.1, temperature at 0400 was 101.2, has been treated with tylenol per OCT, has remained on room air for most of the shift, O2 sats 90-95%, reports SOA has improved, HR has remained tachy from 120-129, urine sample collected and sent to lab for legionella pneumophila urine
--- NOTE | 2020-07-02 08:40 | HMH.ACPN2 ---
Internal Medicine - PN: Subj *Date: 07/02/20 *Time: 08:40 Interval history: Patient feels much better today, feels a little bit more energetic, continues to have fevers but does not feel chilled. Has a good appetite although the mouth soreness limits her from eating quite a bit. Is drinking well and using mouthwash. Denies mental status changes or headache. Exam Vital signs and Labs for Last 24 Hours: Temp Pulse Resp BP Pulse Ox 99.4 F 130 H 20 112/71 95 07/02/20 08:00 07/02/20 08:00 07/02/20 08:00 07/02/20 08:00 07/02/20 08:00 Laboratory Results - last 24 hr 06/28/20 05:40: EBV Capsid Ag IgG Ab 222.0 H, EBV Capsid Ag IgM Ab <36.0, EBV Nuclear Ag IgG Ab <18.0, EBV Interpretation Comment 07/01/20 09:25: Fibrinogen 128 L 07/02/20 05:30: WBC 6.4, RBC 3.46 L, Hgb 11.7 L, Hct 35.2 L, MCV 101.8 H, MCH 33.8 H, MCHC 33.2, RDW 14.1, Plt Count 108 L, MPV 12.7 H, Neut % (Auto) 70.1, Lymph % (Auto) 25.2, [place] % (Auto) 3.9, Eos % (Auto) 0.4, Baso % (Auto) 0.5, Neut # (Auto) 4.5, Lymph # (Auto) 1.6, [place] # (Auto) 0.3, Eos # (Auto) 0.0, Baso # (Auto) 0.0 07/02/20 05:30: Sodium 131 L, Potassium 3.6, Chloride 102, Carbon Dioxide 21 L, Anion Gap 11.6, BUN 8, Creatinine 0.80, Estimated Creat Clear 108, Estimated GFR 80, Est GFR ( Amer) 97, Glucose 106 H, Calcium 7.3 L, Magnesium 2.1, Total Bilirubin 0.4, AST 109 H, ALT 39, Alkaline Phosphatase 94, Total Protein 5.3 L, Albumin 2.6 L, Globulin 2.7, Albumin/Globulin Ratio 1.0 L I & O for Last 24 hours: Intake & Output 1106/30/20 07/01/20 07/02/20 11:59 11:59 11:59 11:59 Intake Total 2690 / 2690 3207 / 3207 1287 / 1287 580 / 580 Balance 2690 / 2690 3207 / 3207 1287 / 1287 580 / 580 Weight 157 lb 163 lb 7 oz 164 lb 2 oz 158 lb Microbiology Reports for the Last 24 Hours: Microbiology 06/30/20 15:33 Urine,Clean Catch Urine Culture - Preliminary NO GROWTH AFTER 24 HOURS Narrative: Scleral hemorrhage and gingival bleeding are improving. No discrete lesions in the mouth. Good air movement, minimal rhonchi in both bases that clear with a deep breath. Heart rate regular. Abdomen soft, rash has faded. No new rash on extremities or evidence of bleeding. Neurologically intact. Assessment and Plan (1) CMV infection, acute Status: Acute Category: Medical Code(s): B25.9 - Cytomegaloviral disease, unspecified (2) Acute onset sepsis Status: Acute Category: Medical Code(s): A41.9 - Sepsis, unspecified organism (3) Acute pyelonephritis due to bacteria Status: Acute Category: Medical Code(s): N10 - Acute pyelonephritis; B96.89 - Other specified bacterial agents as the cause of diseases classified elsewhere (4) Flu-like symptoms Status: Acute Category: Medical Code(s): R68.89 - Other general symptoms and signs (5) Thrombocytopenia Status: Acute Category: Medical Code(s): D69.6 - Thrombocytopenia, unspecified (6) Macrocytosis Status: Acute Category: Medical Code(s): D75.89 - Other specified diseases of blood and blood-forming organs (7) Hypokalemia Status: Acute Category: Medical Code(s): E87.6 - Hypokalemia - Assessment and plan all Dx Assessment and Plan for all problems:: Good symptomatic improvement. Follow platelet counts tomorrow, if rising and patient continues to feel well would plan on discharge with short-term follow-up for blood counts in the office. Hematology and pulmonary notes reviewed and appreciated.
--- NOTE | 2020-07-02 17:42 | PC.NURSE ---
patient has done well this shift and visiting with family. did spike a temp of 103 and was given tylenol, ice packs, turned on fan and wet wash clothes. patient has had no complaints. did get slightly flushed with fever. eyes remain red. family at bedside are wishing for md to speak with patient mother or niece. will pass this along to oncoming nurse to have this relayed to md on morning rounds. family members worried about possibility of discharge tomorrow. vitals stable will continue to monitor.
[2020-07-02 19:37] LABS: HIV Screen 4th Generation wRfx Non Reactive (Non Reactive)
[2020-07-03] VITALS: BP 124/70; PULSE 139; RESP 20; TEMP 38.6; O2SAT 92
[2020-07-03 04:00] VITALS: BP 97/60; PULSE 119; RESP 14; TEMP 37.7; O2SAT 91
--- NOTE | 2020-07-03 04:27 | PC.NURSE ---
No acute changes. Pt has rested well this shift. Has denied any discomfort thus far. She has been febrile again this shift. Medicated per oct. Pt has also been sinus tach. Sclera of eyes continue to be pink to red. Pt denies any discomfort or light sensitivity. She believes her eyes have imrpoved. Call light within reach. Will continue to monitor.
[2020-07-03 05:11] VITALS: BMI 26.9
[2020-07-03 07:26] LABS: Chloride 100 mmol/L (98-107)
[2020-07-03 07:27] LABS: Potassium 3.7 mmoL/L (3.5-5.1); Sodium 132 mmol/L (136-145)
[2020-07-03 07:29] LABS: Blood Urea Nitrogen 7 mg/dl (7-17); Creatinine Clearance Estimated 111 mL/min (50-200); Estimated Glomerular Filt Rate 80 ml/min (>60); GFR (African American) 97 ML/MIN (>60)
[2020-07-03 07:30] LABS: Anion Gap 12.7 mEq/L (5-15); Calcium 7.3 mg/dl (8.4-10.2); Carbon Dioxide 23 mmol/L (22.0-30.0); Glucose 94 mg/dl (74-100)
[2020-07-03 07:36] LABS: Basophils % 0.3 % (0.1-2.0); Eosinophils % 0.4 % (0.1-12.0); Hematocrit 36.3 % (37.0-47.0); Hemoglobin 11.9 g/dL (12.2-16.2); Lymphocytes # 1.5 K/mm3 (0.7-4.5); Lymphocytes % 20.4 % (10-50); Mean Corpuscular HGB Conc 32.9 g/dL (31.8-35.4); Mean Corpuscular Hemoglobin 33.4 pg (27.0-31.2); Mean Corpuscular Volume 101.6 fl (81-99); Monocytes # 0.3 K/mm3 (0.1-1.0); Monocytes % 4.4 % (1.7-9.3); Neutrophils # 5.3 K/mm3 (1.8-7.8); Neutrophils % 74.5 % (37.0-80.0); Platelet Count 121 K/mm3 (142-424); Red Blood Count 3.57 M/mm3 (4.20-5.40); Red Cell Distribution Width 14.3 % (11.5-17.5); White Blood Count 7.2 K/mm3 (4.8-10.8)
[2020-07-03 08:00] VITALS: BP 101/67; PULSE 133; RESP 19; TEMP 39.4; O2SAT 94
--- NOTE | 2020-07-03 09:01 | HMH.DCSUM ---
General - General Admission date:: 06/27/20 Discharge date: 07/03/20 HPI HPI: 40-year-old female presented to the emergency department with generalized weakness and fever. Patient has been having symptoms for the last week or so. She went to a facility in [place] when she was tested for influenza and coronavirus. Both were negative. Her fever persisted and she was seen yesterday at our urgent treatment facility. She again had negative coronavirus and flu testing. However she did have a positive urinalysis. It looks like she grew E. coli in her urine. Patient is endorsing some generalized muscle aches and fatigue. She does complain of some flank pain bilaterally. No radiation. Dull in nature. She states that her biggest complaint is she is having chills and feels warm all the time. She denies any headache or change in vision. No focal weakness. No neck pain. She has had a mild cough, nonproductive. Denies any chest pain or palpitations. No diarrhea or blood in stool. No vaginal discharge. Above note per emergency department. Patient notes that she has right-sided scleral irritation and some gingival bleeding. Otherwise symptoms noted as above Hospital Course Hospital Course: Patient was admitted for SIRS criteria with pyelonephritis. As noted on my admission H&P she was found to have some gingival bleeding and scleral redness/bleeding and it turned out that she became thrombocytopenic. Extensive work-up for thrombocytopenia was undertaken, and fortunately she was found to have no significant DIC symptomatology or evidence of malignancy but was found to have active CMV infection which was probably the cause of her fevers, body aches and viral symptoms all along. Repeat coronavirus testing was negative. Hematology oncology was consulted, recommended watchful waiting, supportive care as we did. Patient finished up her antibiotic course for urinary tract infection. This morning she was doing better, felt great, much less fever, platelet count had improved to 120,000, she will be discharged home with 2-day follow-up in my office to evaluate this as well as some other GI issues she has been having. Objective Vital signs: Temp Pulse Resp BP Pulse Ox 103.0 F H 133 H 19 101/67 L 94 L 07/03/20 08:00 07/03/20 08:00 07/03/20 08:00 07/03/20 08:00 07/03/20 08:00 no acute distress - *Routine HEENT Exam Head: Present: normocephalic Eye: Present: EOMI, PERRL, scleral injection ENT: Present: mucous membranes moist Comments: Gingival bleeding, but improved - *Routine Neck Exam Present: supple - *Routine Respiratory Exam Present: CTA bilaterally - *Routine Cardiovascular Exam Present: RRR - *Routine Abdominal Exam Present: soft, normoactive bowel sounds. Absent: tenderness - *Routine Extremities Exam Absent: cyanosis, clubbing, edema - *Routine Skin Exam Present: warm, rash (Scattered petechial rash but improving over yesterday) - Detailed Eye Exam Eyelids: Bilateral normal inspection Results Labs on day of discharge: Labs from last 24 hours 07/03/20 07/03/20 06/30/20 06:56 06:56 16:26 WBC 7.2 RBC 3.57 L Hgb 11.9 L Hct 36.3 L MCV 101.6 H MCH 33.4 H MCHC 32.9 RDW 14.3 Plt Count 121 L MPV 12.0 H Neut % (Auto) 74.5 Lymph % (Auto) 20.4 [place] % (Auto) 4.4 Eos % (Auto) 0.4 Baso % (Auto) 0.3 Neut # (Auto) 5.3 Lymph # (Auto) 1.5 [place] # (Auto) 0.3 Eos # (Auto) 0.0 Baso # (Auto) 0.0 Sodium 132 L Potassium 3.7 Chloride 100 Carbon Dioxide 23 Anion Gap 12.7 BUN 7 Creatinine 0.80 Estimated Creat Clear 111 Estimated GFR 80 Est GFR ( Amer) 97 Glucose 94 Calcium 7.3 L HIV 1&2 Ag/Ab, 4th Gen Non reactive DS: Diagnosis - Discharge Diagnosis (1) CMV infection, acute Status: Acute (2) Acute onset sepsis Status: Resolved (3) Acute pyelonep
[2020-07-05 10:51] LABS: Legionella pneumophila Urinary Negative (Negative)
[2020-07-06 10:48] LABS: CMV Quant DNA PCR (Plasma) 1210 IU/mL (Negative); log10 CMV Qn DNA Pl 3.083 (.)
== END 2020-07-03 10:43 | disposition home or self-care (01) | DRG 865 ==
LOC: ER 13:30 → 2ND 16:40
PROVIDERS: Internal Medicine Adolescent Medicine; Internal Medicine Medical Oncology; Internal Medicine Pulmonary Disease; Admitting Provider Internal Medicine Adolescent Medicine; Emergency Provider Emergency Medicine; PCP Nurse Practitioner Family; Visit Provider Internal Medicine Adolescent Medicine
DX: B25.9 Cytomegaloviral disease, unspecified (principal); J18.9 Pneumonia, unspecified organism; N10 Acute pyelonephritis; R65.10 Systemic inflammatory response syndrome (SIRS) of non-infectious origin without acute organ dysfunction; E87.6 Hypokalemia; Z87.891 Personal history of nicotine dependence; D69.6 Thrombocytopenia, unspecified
CPT/HCPCS: 36415; 71045; 71046; 71275; 74177; 80048; 80053; 81001; 81025; 82607; 83010; 83605; 83615; 83735; 84550; 85007; 85025; 85378; 85384; 85610; 85730; 86328; 86644; 86645; 86664; 86665; 86703; 87040; 87086; 87486; 87497; 87581; 87633; 87798; 96365; 96366; 96367; 96375; 99284; G0432; J2405; Q9967

== ENCOUNTER → 2020-09-20 09:19 | Outpatient (CLI) | payer BC, SELFPAY ==
[2020-09-20 10:13] LABS: Basophils % 0.6 % (0.1-2.0); Eosinophils # 0.1 K/mm3 (0.0-0.4); Eosinophils % 1.3 % (0.1-12.0); Hematocrit 41.7 % (37.0-47.0); Hemoglobin 13.9 g/dL (12.2-16.2); Lymphocytes # 2.6 K/mm3 (0.7-4.5); Mean Corpuscular HGB Conc 33.3 g/dL (31.8-35.4); Mean Corpuscular Hemoglobin 32.1 pg (27.0-31.2); Mean Corpuscular Volume 96.2 fl (81-99); Mean Platelet Volume 7.8 fl (7.4-10.4); Monocytes # 0.4 K/mm3 (0.1-1.0); Monocytes % 6.6 % (1.7-9.3); Neutrophils # 3.2 K/mm3 (1.8-7.8); Neutrophils % 50.6 % (37.0-80.0); Platelet Count 289 K/mm3 (142-424); Red Blood Count 4.33 M/mm3 (4.20-5.40); Red Cell Distribution Width 14.3 % (11.5-17.5); White Blood Count 6.3 K/mm3 (4.8-10.8)
== END ==
PROVIDERS: Visit Provider Physician Assistant
DX: I50.9 Heart failure, unspecified (principal); D69.6 Thrombocytopenia, unspecified; D75.89 Other specified diseases of blood and blood-forming organs
CPT/HCPCS: 36415; 85025

== ENCOUNTER → 2023-06-26 12:08 | Outpatient (CLI) | payer BC, SELFPAY ==
[2023-06-26 15:46] LABS: HCG,Quantitative 7396 mIU/ml (0-5.42)
[2023-06-27 09:52] LABS: Progesterone 9.8 ng/mL (.)
== END ==
PROVIDERS: PCP Nurse Practitioner Family; Visit Provider Obstetrics & Gynecology
DX: Z32.01 Encounter for pregnancy test, result positive (principal)
CPT/HCPCS: 36415; 84144; 84702

== ENCOUNTER → 2023-07-05 09:28 | Outpatient (CLI) | payer BC, SELFPAY ==
[2023-07-05 11:55] LABS: Basophils % 0.4 % (0.1-2.0); Eosinophils # 0.1 K/mm3 (0.0-0.4); Hematocrit 41.9 % (37.0-47.0); Hemoglobin 14.1 g/dL (12.2-16.2); Lymphocytes # 2.5 K/mm3 (0.7-4.5); Lymphocytes % 26.5 % (10-50); Mean Corpuscular HGB Conc 33.6 g/dL (31.8-35.4); Mean Corpuscular Hemoglobin 35.1 pg (27.0-31.2); Mean Corpuscular Volume 104.5 fl (81-99); Mean Platelet Volume 8.8 fl (7.4-10.4); Monocytes # 0.6 K/mm3 (0.1-1.0); Monocytes % 5.7 % (1.7-9.3); Neutrophils # 6.4 K/mm3 (1.8-7.8); Neutrophils % 66.5 % (37.0-80.0); Platelet Count 327 K/mm3 (142-424); Red Blood Count 4.01 M/mm3 (4.20-5.40); Red Cell Distribution Width 12.6 % (11.5-17.5); White Blood Count 9.6 K/mm3 (4.8-10.8)
[2023-07-06 08:17] LABS: Rubella Antibodies, IgG 7.81 index (Immune >0.99)
[2023-07-06 10:33] LABS: Rapid Plasma Reagin Ab Titer Non Reactive titer (NonRea<1:1)
[2023-07-08 10:14] LABS: HIV Screen 4th Generation wRfx Non Reactive; Hepatitis B Surface Antigen Negative; Hepatitis C Antibody Non Reactive
== END ==
PROVIDERS: PCP Nurse Practitioner Family; Visit Provider Obstetrics & Gynecology
DX: Z34.91 Encounter for supervision of normal pregnancy, unspecified, first trimester (principal); Z3A.01 Less than 8 weeks gestation of pregnancy
CPT/HCPCS: 36415; 85025; 86593; 86703; 86762; 86850; 87086; 87340; 87380; G0432

== ENCOUNTER → 2023-08-21 11:00 | Outpatient (CLI) | payer BC, SELFPAY ==
--- NOTE | 2023-08-21 11:04 | US_ITS ---
PROCEDURE: US OB <= 14 WEEKS FETUS CLINICAL INDICATION: bleeding in early COMPARISON: No exams were available for comparison FINDINGS: Transvaginal sonographic images of the pelvis were obtained. From her last menstrual period she is 13weeks 2days. heart tones are present with an FHR of 161bpm. Viable fetus within the uterine cavity in the cephalic position. BPD: 14 weeks 1 day HC: 14 weeks 0 days AC: 13 weeks 6 days FL: 13 weeks 2 days This correlates to a gestational age of 13weeks 6days. There is a 7 mm nabothian cyst within the cervix. There is a fundal fibroid to the left side measuring 3.3 cm x 3.1 cm. 3.1 cm IMPRESSION: 1. Viable fetus within the uterine cavity in a cephalic position. 2. biometry is consistent with dates. 3. No obvious bleeding or blood clots seen. 4. There is a fundal fibroid measuring 3.1 cm. Dictated by: Jeanmarie Phan MD 08/23/2023 13:13 Jeanmarie Phan MD in OV 08/23/2023 13:13
== END ==
LOC: RAD 11:01
PROVIDERS: PCP Nurse Practitioner Family; Visit Provider Obstetrics & Gynecology
DX: O20.9 Hemorrhage in early pregnancy, unspecified (principal); Z3A.13 13 weeks gestation of pregnancy
CPT/HCPCS: 76801

== ENCOUNTER 2023-09-16 18:14 | Emergency (ER) | payer BC, SELFPAY ==
[2023-09-16] VITALS (8 sets, daily range): BP systolic 107–151; BP diastolic 62–103; PULSE 87–118; RESP 18–20; TEMP 36.6; O2SAT 97–100; BMI 28.9
[2023-09-16 18:40] LABS: Basophils # 0.1 K/mm3 (0-0.2); Basophils % 0.4 % (0.1-2.0); Eosinophils # 0.1 K/mm3 (0.0-0.4); Hematocrit 37.7 % (37.0-47.0); Hemoglobin 12.9 g/dL (12.2-16.2); Lymphocytes # 3.7 K/mm3 (0.7-4.5); Lymphocytes % 30.7 % (10-50); Mean Corpuscular HGB Conc 34.3 g/dL (31.8-35.4); Mean Corpuscular Hemoglobin 32.8 pg (27.0-31.2); Mean Corpuscular Volume 95.6 fl (81-99); Mean Platelet Volume 8.7 fl (7.4-10.4); Monocytes # 0.6 K/mm3 (0.1-1.0); Monocytes % 4.7 % (1.7-9.3); Neutrophils # 7.5 K/mm3 (1.8-7.8); Neutrophils % 63.1 % (37.0-80.0); Platelet Count 310 K/mm3 (142-424); Red Blood Count 3.94 M/mm3 (4.20-5.40); Red Cell Distribution Width 13.1 % (11.5-17.5); White Blood Count 11.9 K/mm3 (4.8-10.8)
[2023-09-16 18:47] LABS: Alanine Aminotransferase 19 U/L (12-78); Albumin/Globulin Ratio 1.3 (1.1-1.8); Alkaline Phosphatase 77 U/L (38-126); Anion Gap 14.4 mEq/L (5-15); Aspartate Amino Transferase 28 U/L (14-36); Bilirubin,Total 0.2 mg/dl (0.2-1.3); Blood Urea Nitrogen 8 mg/dl (7-17); Carbon Dioxide 22 mmol/L (22.0-30.0); Chloride 103 mmol/L (98-107); Creatinine Clearance Estimated 184 mL/min (50-200); Estimated Glomerular Filt Rate 136 ml/min (>60); GFR (African American) 165 ML/MIN (>60); Globulin 3.2 g/dL (1.3-3.2); Glucose 99 mg/dl (74-100); Potassium 3.4 mmoL/L (3.5-5.1); Sodium 136 mmol/L (136-145); Total Protein,Serum 7.2 g/dl (6.3-8.2)
--- NOTE | 2023-09-16 19:13 | PC.NURSE ---
obtained UA at this time.
--- NOTE | 2023-09-16 19:55 | PC.NURSE ---
Pt updated on status, Dr Espinosa to perform bedside US.
--- NOTE | 2023-09-16 20:30 | PC.NURSE ---
in room at bedside with US
--- NOTE | 2023-09-16 20:43 | ED_ITS ---
Discharge Plan Disposition Patient Disposition: Home, Self-Care Prescriptions Prescriptions: No Action Classic 28 mg iron- 800 mcg tablet PO DAILY Referrals Follow up/Referrals: Loli Ashford [Primary Care Provider] - See instructions Activity Restrictions/Add. Instructions Additional Instructions/Restrictions: At this time it was felt you are safe to be discharged home. If new or worsening symptoms please do not hesitate to return the emergency department. Please follow-up with Dr. Sierra as soon as you are able as discussed. Clinical Impressions Clinical Impression: Vaginal bleeding in Discharge ED Provider: Rafa Espinosa General Adult HPI General Chief complaint: Vaginal Bleeding Stated complaint: 17 wks bleeding Time Seen by Provider: 09/16/23 20:00 Mode of Arrival: Ambulatory Source of Information: Patient Limitations: No Limitations Description of Symptoms (Recalled from ER Triage Doc. by RN): Patient reports she is 17 weeks with some vaginal bleeding that has been on/off for 1 week. Slight cramping as well. was made aware of slight bleeding on Saturday. Patient was told if bleeding continued to come to ED. This is patient's 3rd . History of Present Illness HPI narrative: Patient is a 43-year-old female G3, P2 EGA 17 weeks who presents emergency department for evaluation of vaginal bleeding. Patient has had spotting over the last month on and off and was recently diagnosed with urinary tract infection and started on Macrobid for which she only completed a 3-day course. Tonight she wiped and had bright red blood causing her to become concerned and present here for continued evaluation. No other acute complaints at this time. Related Data Home Medications Medication Instructions Recorded Confirmed vits no.126-ferrous fum tab PO DAILY 07/05/23 09/12/23 28 mg iron-folic acid 800 mcg tablet (Classic ) Allergies Allergy/AdvReac Type Severity Reaction Status Date / Time No Known Allergies Allergy Verified 09/12/23 15:45 [facility] Disclaimer: The information contained in this section may have been updated after the patient was seen, as this information can be updated by other users. Medical History (Updated 09/16/23 @ 20:48 by Rafa Espinosa MD) Acute pyelonephritis due to bacteria AMA (advanced maternal age) multigravida 35+ Cardiomyopathy Depression affecting Dyspnea Rh negative state in antepartum period Surgical History History of surgery Family History Other Cancer Stroke Social History Smoking Status: Never smoker smoking status stop date: 06/25/23 alcohol intake: never substance use type: denies use current occupational status: employed Travel in the last 8 weeks: None household members: children housing: house current occupation: teacher ROS Obtained: Yes Systems reviewed as appropriate & no additional complaints except as documented Physical Exam General General appearance: alert and in no apparent distress Head Head exam: atraumatic and normocephalic Eye Eye exam: Present PERRL and EOMI ENT ENT exam: Present mucous membranes moist Neck Neck exam: Present normal inspection Chest Chest inspection: Present normal inspection and symmetric chest wall rise Respiratory Respiratory exam: Absent respiratory distress Cardiovascular Cardiovascular exam: Present regular rate and normal rhythm Abdominal Exam Abdominal exam: Present soft and other (Gravid); Absent tenderness Extremities Exam Extremities exam: Present normal inspection Neurological Exam Neurological exam: Present alert Psychiatric Psychiatric exam: Present normal affect Skin Skin exam: Present warm and dry Medical Decision Making Abrahan Inquiry Pt receiving controlled substance: No Vital Signs: 09/16/23 18:15 09/16/23 19:00 09/16/23 19:06 Temperature 97.8 F Temperature Source Oral Pulse Rate 98 H 91 H Pulse Rate [Right Brachial] 118 H Respiratory Rate 20 Blood Pressure 135/72 119/69 Blood Pressure [Right Arm] 151/103 H Blood Pressure Mean 93 90 Blood Pressure Mean [Right Arm] 119 Blood Pressure Source Blood Pressure Source [Right Arm] Automatic Cuff Blood Pressure Position Blood Pressure Position [Right Arm] Sitting 02 Sat by Pulse Oximetry 100 100 100 Oxygen Delivery Method Room Air 09/16/23 19:30 09/16/23 20:00 09/16/23 20:30 Temperature Temperature Source Pulse Rate 92 H 101 H 95 H Pulse Rate [Right Brachial] Respiratory Rate Blood Pressure 108/62 L 136/66 133/94 H Blood Pressure [Right Arm] Blood Pressure Mean 77 89 107 Blood Pressure Mean [Right Arm] Blood Pressure Source Blood Pressure Source [Right Arm] Blood Pressure Position Blood Pressure Position [Right Arm] 02 Sat by Pulse Oximetry 100 100 100 Oxygen Delivery Method 09/16/23 21:01 09/16/23 21:00 Temperature 98 F Temperature Source Oral Pulse Rate 87 95 H Pulse Rate [Right Brachial] Respiratory Rate 18 Blood Pressure 117/70 107/70 L Blood Pressure [Right Arm] Blood Pressure Mean Blood Pressure Mean [Right Arm] Blood Pressure Source Automatic Cuff Blood Pressure Source [Right Arm] Blood Pressure Position Sitting Blood Pressure Position [Right Arm] 02 Sat by Pulse Oximetry 100 Oxygen Delivery Method Room Air Lab Data Lab Results 09/16/23 18:28: WBC 11.9 H, RBC 3.94 L, Hgb 12.9, Hct 37.7, MCV 95.6, MCH 32.8 H , MCHC 34.3, RDW 13.1, Plt Count 310, MPV 8.7, Neut % (Auto) 63.1, Lymph % (Auto) 30.7, [place] % (Auto) 4.7, Eos % (Auto) 1.0, Baso % (Auto) 0.4, Neut # (Auto) 7.5, Lymph # (Auto) 3.7, [place] # (Auto) 0.6, Eos # (Auto) 0.1, Baso # (A uto) 0.1, Sodium 136, Potassium 3.4 L, Chloride 103, Carbon Dioxide 22, Anion Gap 14.4, BUN 8, Creatinine 0.50 L, Estimated Creat Clear 184, Estimated GFR 136, Est GFR ( Amer) 165, Glucose 99, Calcium 9.0, Total Bilirubin 0.2, AST 28, ALT 19, Alkaline Phosphatase 77, Total Protein 7.2 D, Albumin 4.0, Globulin 3.2, Albumin/Globulin Ratio 1.3, HCG, Quant [id number] H 09/16/23 19:05: Urine Color Yellow, Urine Appearance Clear, Urine pH 6.0, Ur Specific [place] >= 1.030, Urine Protein Negative, Urine Glucose (UA) Negative, Urine Ketones Negative, Urine Blood 3+, Urine Nitrate Negative, Urine Bilirubin Negative, Urine Urobilinogen 0.2, Ur Leukocyte Esterase Trace, Urine RBC 3-5, Urine WBC Occasional, Ur Squamous Epith Cells 3-5, Urine Bacteria None 09/16/23 18:28 09/16/23 18:28 Orders (Tests/Meds): ED MEDICATIONS Discontinued Medications Generic Name Dose Route Start Last Admin Trade Name Freq PRN Reason Stop Dose Admin Rho Immune Globulin 1,500 unit 09/16/23 20:48 Rho(D) Immune Globulin 1,500 Unit Syringe IM 09/16/23 20:49 ONCE ONE ORDERS Category Date Time Status CBC [Complete Blood Count Auto Diff] Stat Lab 09/16/23 18:28 Completed CMP [Comprehensive Metabolic Panel] Stat Lab 09/16/23 18:28 Completed HCG,Quantitative Stat Lab 09/16/23 18:28 Completed UA [Urinalysis and Microscopic] Stat Lab 09/16/23 19:05 Completed Medical Decision Narrative: In summary patient is a 43-year-old female with past medical history described above presents emergency department for evaluation of vaginal bleeding with . Patient is hemodynamically stable nontoxic-appearing upon arrival, afebrile. Differential includes urinary tract infection, threatened , among others. Dlefn-co-odff ultrasound at bedside shows active heart rate, active movement (images were not saved to her prior archive the refore no note is warranted). Patient is O- blood type. Workup will be conducted with hematologic labs, urinalysis. Type and screen was drawn given that protocol is longer than 72 hours must be redrawn prior to administration of RhoGAM. Dr. Phan was contacted, type and screen can be conducted tonight and RhoGAM can be administered tomorrow. Workup reviewed by me, hematologic labs are nonactionable. Urinalysis interpreted by me and not consistent with infection, no bacteriuria. Patient was educated on possibilities of vaginal bleeding 17 weeks and is appropriate for outpatient management at this time was given return precautions. Critical Care Critical Care Time Critical Care Time: No
[2023-09-16 20:47] LABS: Microscopic, Urine URINE MICROSCOPIC (MICROSCOPIC)
[2023-09-16 20:50] LABS: Appearance,Urine CLEAR (Clear); Bilirubin,Urine Negative (Negative); Blood, Urine 3+ (Negative); Color,Urine YELLOW (Yellow); Glucose,Urine (UA) Negative (Negative); Ketones,Urine Negative (Negative); Leukocyte Esterase,Urine TRACE (Negative); Nitrate,Urine Negative (Negative); Protein,Urine Negative (Negative); Specific Gravity, Urine >= 1.030 (1.005-1.030); Urobilinogen,Urine 0.2 EU/dl (0.2)
[2023-09-16 21:21] LABS: HCG,Quantitative 18373 mIU/ml (0-5.42)
[2023-09-16 21:22] LABS: WBC,Urine Occasional #/hpf (0-3)
== END 2023-09-16 21:08 | disposition home or self-care (01) ==
PROVIDERS: Emergency Provider Emergency Medicine; PCP Nurse Practitioner Family
DX: O26.852 Spotting complicating pregnancy, second trimester (principal); O26.892 Other specified pregnancy related conditions, second trimester; O36.0120 Maternal care for anti-D [Rh] antibodies, second trimester, not applicable or unspecified; O99.412 Diseases of the circulatory system complicating pregnancy, second trimester; I42.9 Cardiomyopathy, unspecified; R10.9 Unspecified abdominal pain; Z3A.17 17 weeks gestation of pregnancy
CPT/HCPCS: 80053; 81001; 84702; 85025; 96372; 99285

== ENCOUNTER 2023-09-17 09:50 | Outpatient (CLI) | payer BC, SELFPAY ==
[2023-09-17] MEDS: RHO(D) IMMUNE GLOBULIN 1,500 UNIT SYRINGE 1500 UNIT IM (11:40)
[2023-09-17 11:42] VITALS: BP 122/59; PULSE 93; RESP 18; TEMP 36.3; O2SAT 100
== END 2023-09-17 11:42 | disposition home or self-care (01) ==
LOC: INF 09:51
PROVIDERS: PCP Nurse Practitioner Family; Visit Provider Obstetrics & Gynecology
DX: O46.91 Antepartum hemorrhage, unspecified, first trimester (principal); O26.891 Other specified pregnancy related conditions, first trimester; Z67.91 Unspecified blood type, Rh negative; Z3A.17 17 weeks gestation of pregnancy
CPT/HCPCS: 36415; 96372; J2790

== ENCOUNTER 2023-12-21 08:08 | Outpatient (CLI) | payer BC, SELFPAY ==
[2023-12-21 08:40] LABS: Basophils # 0.1 K/mm3 (0-0.2); Basophils % 0.5 % (0.1-2.0); Eosinophils # 0.1 K/mm3 (0.0-0.4); Eosinophils % 1.1 % (0.1-12.0); Hemoglobin 11.8 g/dL (12.2-16.2); Lymphocytes % 19.5 % (10-50); Mean Corpuscular HGB Conc 32.8 g/dL (31.8-35.4); Mean Corpuscular Hemoglobin 31.4 pg (27.0-31.2); Mean Corpuscular Volume 95.7 fl (81-99); Mean Platelet Volume 9.4 fl (7.4-10.4); Monocytes # 0.6 K/mm3 (0.1-1.0); Monocytes % 5.7 % (1.7-9.3); Neutrophils # 7.6 K/mm3 (1.8-7.8); Neutrophils % 73.1 % (37.0-80.0); Platelet Count 271 K/mm3 (142-424); Red Blood Count 3.76 M/mm3 (4.20-5.40); Red Cell Distribution Width 14.5 % (11.5-17.5); White Blood Count 10.3 K/mm3 (4.8-10.8)
[2023-12-21 08:49] LABS: Glucose,Fasting 84 mg/dl (74-100)
[2023-12-21 10:01] LABS: Glucose 1 Hour 159 mg/dL (74-100)
== END 2023-12-21 23:59 | disposition home or self-care (01) ==
LOC: LAB 08:09
PROVIDERS: PCP Nurse Practitioner Family; Visit Provider Obstetrics & Gynecology
DX: O99.810 Abnormal glucose complicating pregnancy (principal); Z3A.30 30 weeks gestation of pregnancy
CPT/HCPCS: 82951; 85025

== ENCOUNTER 2023-12-28 09:51 | Outpatient (CLI) | payer BC, SELFPAY ==
[2023-12-28 10:23] LABS: Glucose,Fasting 83 mg/dl (74-100)
[2023-12-28 11:46] LABS: Glucose 1 Hour 167 mg/dL (74-100)
[2023-12-28 12:36] LABS: Glucose 2 Hour 148 mg/dL (74-100)
[2023-12-28 15:00] LABS: Glucose 3 Hour 79 mg/dL (74-100)
== END 2023-12-28 23:59 | disposition home or self-care (01) ==
LOC: LAB 09:52
PROVIDERS: PCP Nurse Practitioner Family; Visit Provider Obstetrics & Gynecology
DX: O26.893 Other specified pregnancy related conditions, third trimester (principal); Z3A.31 31 weeks gestation of pregnancy; R73.9 Hyperglycemia, unspecified
CPT/HCPCS: 36415; 82951

== ENCOUNTER 2024-01-08 14:30 | Outpatient (CLI) | payer BC, SELFPAY ==
--- NOTE | 2024-01-08 14:30 | CA_ITS ---
APPROVED REPORT EXAM: Comprehensive 2D, Doppler, and color-flow Echocardiogram Radio Rigger: Faye Quintero, RT(R) Ht: 5 ft 5 in Wt: 187lbs BSA: 1.92 BP: 142/70 mmHg Indications: Hx of viral CM, 32 wks 2D Dimensions LVEF (Lopes's) 62.00 % F: 54 - 74 LV Volume 101.00 mL F: 46 - 106 LV Volume Index 52.6 mL/m2 F: 29 - 61 LA Volume 39.00 mL LA Volume Index 20.31 mL/m2 (M/F) 16-34 EF AP4 60.10 % EF AP2 63.9 % EF BP 62.0 % GL Strain -19.6 % M-Mode Dimensions RVDd 3.48 cm (0.9-2.6) LA Diam 3.45 cm (1.9-4.0) LVDd 4.97 cm (3.5-5.7) LVDs 3.78 cm (3.5-5.7) IVSd 0.98 cm (0.6-1.1) PWd 0.76 cm (0.6-1.1) EF (Teich) 47.50% FS 23.90% EDV (Teich) 116.60 mL ESV (Teich) 61.20 mL LV Diastology E Decel Time 173 (160-240 msec) E/A Ratio 1.5 Mitral Valve MV E Max Anderson. 123.0 (40-130 cm/s) MV A Velocity 80.0 (40-130 cm/s) E/A Ratio 1.53 MV PHT 51.0 ms Tricuspid Valve TR P. Velocity 222.00 cm/s RAP Estimate 10.00 mmHg RVSP 29.70 mmHg Left Ventricle The left ventricle is normal size. The left ventricular systolic function is normal. The left ventricular ejection fraction is within the normal range. There is normal left ventricular wall thickness. There is normal LV segmental wall motion. The left ventricular diastolic function is normal. LVEF is 50???55% Right Ventricle The right ventricle is normal size. The right ventricular systolic function is normal. Atria The left atrium size is normal. The right atrium size is normal. There is no Doppler evidence of interatrial shunt. Aortic Valve The aortic valve opens well. There is no aortic valvular stenosis. No aortic regurgitation is present. Mitral Valve The mitral valve is normal in structure. No evidence of mitral valve stenosis. Mild mitral regurgitation. Tricuspid Valve The tricuspid valve leaflets are thin and pliable. Mild tricuspid regurgitation. RVSP is 20 to 25 mmHg. Pulmonic Valve The pulmonary valve is normal in structure. Trace pulmonic regurgitation. Great Vessels The aortic root is normal in size. The ascending aorta is not well-visualized. IVC is normal in size and collapses >50% with inspiration. Pericardium There is no pericardial effusion. Other Information Study Quality: Adequate Conclusion Normal biventricular systolic function. Mild MR, mild TR. Electronically signed by : Darshana Caballero MD 01/10/2024 22:25:22
== END 2024-01-08 23:59 | disposition home or self-care (01) ==
LOC: RT 14:30
PROVIDERS: PCP Nurse Practitioner Family; Visit Provider Physician Assistant
DX: I45.2 Bifascicular block (principal); I42.2 Other hypertrophic cardiomyopathy
CPT/HCPCS: 93306

== ENCOUNTER 2024-01-14 09:53 | Outpatient (CLI) | payer BC, SELFPAY ==
[2024-01-14 11:10] VITALS: BP 127/77; PULSE 108; RESP 18; TEMP 36.6; O2SAT 99
[2024-01-14] MEDS: RHO(D) IMMUNE GLOBULIN 1,500 UNIT SYRINGE 1500 UNIT IM (11:10)
== END 2024-01-14 11:30 | disposition home or self-care (01) ==
PROVIDERS: PCP Nurse Practitioner Family; Visit Provider Obstetrics & Gynecology
DX: O26.893 Other specified pregnancy related conditions, third trimester (principal); Z67.91 Unspecified blood type, Rh negative; Z3A.34 34 weeks gestation of pregnancy
CPT/HCPCS: 36415; 96372; J2790

== ENCOUNTER 2024-01-22 14:24 | Outpatient (CLI) | payer BC, SELFPAY ==
--- NOTE | 2024-01-22 14:24 | US_ITS ---
PROCEDURE: US OB FOLLOW UP CLINICAL INDICATION: lga COMPARISON: US US OB <= 14 WEEKS FETUS from 08/21/2023 FINDINGS: Transabdominal sonographic images of the uterus were obtained. From her established due date she is 35weeks 2days. The following parameters are obtained: Viable Fetus in the cephalic presentation with a posterior placenta grade 2. Average ultrasound age is 36weeks 0 days Estimated weight 2,735g, 6 lb 0 oz. Cervix measures 1.54 cm transvaginally. Measurements: heart Rate = 147bpm BPD = 37weeks 0 days, 90 percentile HC = 36weeks 2days, 39 percentile AC = 35weeks 6days, 73 percentile FL = 34weeks 5days, 27 percentile HC/AC is 1.01 FL/BPD is 0.74 FL/AC is 0.21 59 percentile Amniotic fluid index: 12.0 cm, MVP 5.17 cm. No obvious anomalies evident.Kidneys, profile, bladder, stomach, four-chamber heart, three-vessel cord appear normal. IMPRESSION: 1. Viable fetus in the cephalic presentation with a posterior placenta grade 2. 2. The fluid is within normal limits with an amniotic fluid index of 12.0 cm, MVP 5.17 cm. 3. There has been good interval growth with the fetus currently 59th percentile. 4. The cervix is short and measures 1.54 cm. 5. Limited anatomical scan appears normal. Dictated by: Jeanmarie Phan MD 01/22/2024 16:09 Jeanmarie Phan MD in OV 01/22/2024 16:09
== END 2024-01-22 23:59 | disposition home or self-care (01) ==
LOC: RAD 14:24
PROVIDERS: PCP Nurse Practitioner Family; Visit Provider Nurse Practitioner Obstetrics & Gynecology
DX: O36.63X0 Maternal care for excessive fetal growth, third trimester, not applicable or unspecified (principal); Z3A.35 35 weeks gestation of pregnancy
CPT/HCPCS: 76816

== ENCOUNTER 2024-01-31 16:56 | Outpatient (CLI) | payer BC, SELFPAY | END 2024-01-31 23:59 | disposition home or self-care (01) | LOC: LAB.DROPOF 16:57 | PROVIDERS: PCP Obstetrics & Gynecology; Visit Provider Obstetrics & Gynecology | DX: O26.893 Other specified pregnancy related conditions, third trimester (principal); Z3A.36 36 weeks gestation of pregnancy | CPT/HCPCS: 86403 ==

== ENCOUNTER 2024-02-05 09:40 | Outpatient (CLI) | payer BC, SELFPAY ==
[2024-02-13 18:10] LABS: Factor VIII Activity 123 % (56-140); von Willebrand Factor (vWF) Ag 160 % (50-200)
== END 2024-02-05 23:59 | disposition home or self-care (01) ==
LOC: LAB.DROPOF 02-17 09:40
PROVIDERS: PCP Obstetrics & Gynecology; Visit Provider Obstetrics & Gynecology
DX: Z83.2 Family history of diseases of the blood and blood-forming organs and certain disorders involving the immune mechanism (principal)
CPT/HCPCS: 36415; 81241; 85240; 85245

== ENCOUNTER 2024-02-11 03:41 | Inpatient (IN) | payer BC, SELFPAY ==
[2024-02-11 03:30] VITALS: BMI 30.6
[2024-02-11 04:10] VITALS: BP 118/73; PULSE 103; RESP 20; TEMP 36.5; BMI 30.7
[2024-02-11 04:26] LABS: Microscopic, Urine URINE MICROSCOPIC (MICROSCOPIC)
[2024-02-11] MEDS: LACTATED RINGERS 1000ML 1,000 ML 500 ML IV (04:28)
[2024-02-11] MEDS: DEXTROSE 5%-LACTATED RINGERS 1,000 ML 125 ML IV (04:28)
[2024-02-11 04:32] LABS: Basophils % 0.4 % (0.1-2.0); Eosinophils # 0.1 K/mm3 (0.0-0.4); Eosinophils % 1.1 % (0.1-12.0); Hematocrit 36.7 % (37.0-47.0); Hemoglobin 12.2 g/dL (12.2-16.2); Lymphocytes # 2.9 K/mm3 (0.7-4.5); Lymphocytes % 25.6 % (10-50); Mean Corpuscular HGB Conc 33.3 g/dL (31.8-35.4); Mean Corpuscular Hemoglobin 31.6 pg (27.0-31.2); Mean Corpuscular Volume 95.2 fl (81-99); Mean Platelet Volume 10.4 fl (7.4-10.4); Monocytes # 0.8 K/mm3 (0.1-1.0); Monocytes % 6.8 % (1.7-9.3); Neutrophils # 7.4 K/mm3 (1.8-7.8); Neutrophils % 66.2 % (37.0-80.0); Platelet Count 254 K/mm3 (142-424); Red Blood Count 3.86 M/mm3 (4.20-5.40); Red Cell Distribution Width 14.4 % (11.5-17.5); White Blood Count 11.2 K/mm3 (4.8-10.8)
[2024-02-11 04:36] LABS: Appearance,Urine CLEAR (Clear); Bilirubin,Urine Negative (Negative); Blood, Urine 2+ (Negative); Color,Urine YELLOW (Yellow); Glucose,Urine (UA) Negative (Negative); Ketones,Urine Negative (Negative); Leukocyte Esterase,Urine Negative (Negative); Nitrate,Urine Negative (Negative); Protein,Urine Negative (Negative); Specific Gravity, Urine 1.025 (1.005-1.030); Urobilinogen,Urine 0.2 EU/dl (0.2)
[2024-02-11 04:37] LABS: Fetal Membrane Rupture (Rapid) Positive (Negative)
[2024-02-11 04:56] LABS: Barbiturates Screen,Urine Negative ng/ml (<200)
[2024-02-11 04:57] LABS: Amphetamine/Metha Screen,Urine Negative ng/ml (<1000); Benzodiazepines Screen,Urine Negative ng/ml (<200)
[2024-02-11 04:58] LABS: Methadone Screen,Urine Negative ng/ml (<300)
[2024-02-11 04:59] LABS: Cannabinoid Screen,Urine Negative ng/ml (<50); Cocaine Screen,Urine Negative ng/ml (<300)
[2024-02-11 05:00] LABS: Opiate Screen,Urine Negative ng/ml (<300)
[2024-02-11 05:01] LABS: Phencyclidine Screen,Urine Negative ng/ml (<25)
[2024-02-11 05:14] LABS: Bacteria,Urine 1+ /lpf; Calcium Oxalate Crystals,Urine 1+ /lpf
--- NOTE | 2024-02-11 05:30 | EXP.ANES.CKL ---
[facility] Disclaimer: The information contained in this section may have been updated after the patient was seen, as this information can be updated by other users. Medical History (Updated 02/05/24 @ 11:37 by Katelyn Robles DO) Family history of factor V deficiency Family history of von Willebrand disease Uterine fibroid during , antepartum Fibroid uterus Depression affecting Rh negative state in antepartum period AMA (advanced maternal age) multigravida 35+ Cardiomyopathy Dyspnea CMV infection, acute Acute pyelonephritis due to bacteria Surgical History History of surgery Family History Other Cancer Stroke Social History Smoking Status: Never smoker smoking status stop date: 06/25/23 alcohol intake: never substance use type: denies use current occupational status: employed Travel in the last 8 weeks: None household members: children housing: house current occupation: teacher [employer] Anesthesia Checklist Patient Identification Patient Identification: Arm Band Structural Data Admitted From: Inpatient Planned Operative Procedure/s: Labor Epidural Consent for Planned Operative Procedure(s) Verified: Yes Verified Documents: Surgical Consent and History and Physical Additional verifications Anesthesia Reactions: No Neurological Assessment Level of Consciousness: Awake, Alert and Appropriate Anesthesia Plan Anesthesia Risk discussed: Yes Anesthesia Plan: Verified ASA Class: II Anesthesia Type: Epidural
[2024-02-11] MEDS: OXYTOCIN/RINGERS LACTATE 30 UNITS/500 ML BAG 40 UNITS IV ×2 (07:00→10:15)
--- NOTE | 2024-02-11 09:09 | EXP.OB.APHP ---
OB - H&P: HPI Antepartum History of Present Illness Chief complaint: Leakage of fluid, contractions History of present illness: Ms Aretha Felipe is a 43 yo at 38w1d who presents to [facility] L&D with complaint of leakage of fluid that woke her up this morning around 0250. Contractions started shortly after. Baby is active. She has had good care. GBS negative. History of Present Criteria for establishing EDC:: based on 1st trimester US only care: good care Ultrasounds: normal mid trimester US Obstetrical complications: none Medical complications: none Labs Blood type: O (-) negative Rubella: immune RPR/VDRL: nonreactive GBS status: negative HBsAG: negative PFSH PFS Disclaimer: The information contained in this section may have been updated after the patient was seen, as this information can be updated by other users. Medical History (Updated 02/11/24 @ 09:18 by Katelyn Robles DO) Spontaneous onset of labor Spontaneous rupture of membranes 38 weeks gestation of Family history of factor V deficiency Family history of von Willebrand disease Uterine fibroid during , antepartum Fibroid uterus Depression affecting Rh negative state in antepartum period AMA (advanced maternal age) multigravida 35+ Cardiomyopathy Dyspnea CMV infection, acute Acute pyelonephritis due to bacteria Surgical History History of surgery Family History Other Cancer Stroke Social History Smoking Status: Never smoker smoking status stop date: 06/25/23 alcohol intake: never substance use type: denies use current occupational status: employed Travel in the last 8 weeks: None household members: children housing: house current occupation: teacher Review of Systems Review of Systems Review of systems:: pertinent systems reviewed and negative unless documented below *Genitourinary Genitourinary: Reports other (+ leakage of fluid, painful contractions) Meds Home Medications and Allergies Home Medications Medication Instructions Recorded Confirmed Type vits no.126-ferrous fum 1 tab PO DAILY Supplement 07/05/23 02/05/24 History 28 mg iron-folic acid 800 mcg tablet (Classic ) New Prescriptions to Start Prescriptions: Allergies Allergy/AdvReac Type Severity Reaction Status Date / Time No Known Allergies Allergy Verified 02/05/24 10:34 OB - H&P: Exam Physical Exam Vital signs: Temp Pulse Resp BP 97.7 F 103 H 20 118/73 02/11/24 04:10 02/11/24 04:10 02/11/24 04:10 02/11/24 04:10 Constitutional no acute distress and cooperative Routine HEENT Exam Head: Present normocephalic and atraumatic Eye: Absent conjunctivae pink ENT: Present mucous membranes moist Routine Neck Exam Present full ROM Routine Respiratory Exam Present CTA bilaterally and normal respiratory effort Routine Cardiovascular Exam Present RRR Routine Abdominal Exam Present soft (Gravid); Absent tenderness Routine Rectal Exam Patient deferred: visual exam Routine Exam External: Present normal urethra appearance; Absent erythema, swelling, lesions or lacerations Routine Extremities Exam Present full ROM; Absent edema or calf tenderness Routine Neurological Exam Present alert, moving all extremities and normal speech Routine Psychiatric Exam Present normal affect and cooperative Detailed Labor and Delivery Exam Dilation (cm): 7 Effacement (%): 90 Cervix position: mid station: -2 Consistency: soft Membranes: spontaneously ruptured Amniotic fluid: clear Baseline heart rate: 140 monitor accelerations: Present monitor decelerations: Variable intermediate variability: Moderate (11-25) Tachysystole: No OB - Results Labs Labs: Short CBC 02/11/24 Range/Units 03:50 WBC 11.2 H (4.8-10.8) K/mm3 Hgb 12.2 (12.2-16.2) g/dL Hct 36.7 L (37.0-47.0) % Plt Count 254 (142-424) K/mm3 Urine 02/11/24 Range/Units 03:32 Urine Color Yellow (Yellow) Urine Appearance Clear (Clear) Urine pH 6.0 (5.0-8.5) Ur Specific [place] 1.025 (1.005-1.030) Urine Protein Negative (Negative) Urine Glucose (UA) Negative (Negative) OB - A/P Antepartum (1) 38 weeks gestation of : Status: Acute (2) Spontaneous rupture of membranes: Status: Acute (3) Spontaneous onset of labor: Status: Acute (4) AMA (advanced maternal age) multigravida 35+: Status: Acute (5) Uterine fibroid during , antepartum: Status: Acute (6) Depression affecting : Status: Acute (7) Rh negative state in antepartum period: Status: Acute (8) Hx of cardiomyopathy: Status: Acute Additional Plan Planning to breastfeed?: Yes Additional Information:: Admit to [facility] for onset of labor GBS negative Augment with Pitocin if needed Close monitoring Anticipate
[2024-02-11] MEDS: diphenhydrAMINE 50MG/ML VIAL 12.5 MG IV (09:31)
[2024-02-11] MEDS: OXYTOCIN/RINGERS LACTATE 30 UNITS/500 ML BAG 999 UNITS IV (09:58)
--- NOTE | 2024-02-11 10:22 | EXP.DN ---
Delivery Note Delivery Date:: 02/11/24 Delivery Time:: 09:54 Anesthesia Type: Epidural Was labor medically induced?: No Induction method: none Gestational age (weeks): 38 Infant delivered prior to 39 weeks?: Yes Justification for early elective delivery:: Active Labor Gender: Female at 1 minute: 8 at 5 minutes: 8 LAC or MLE?: LAC Delivery Procedure:: Mom complete with epidural. Pushed for approximately 7 minutes. Head delivered spontaneously over intact perineum in DOTTIE position. No nuchal cord. Anterior shoulder delivered with gentle downward pressure. Posterior shoulder and remainder of body delivered spontaneously. Baby placed on maternal abdomen, mouth and nares bulb suctioned, warmed/dried and stimulated. Delayed cord clamping was performed for 60 seconds. Cord was clamped and cut by father of baby. Cord blood was obtained. Placenta delivered spontaneously and intact. Bilateral labial and periurethral lacerations repaired with 3-0 Vicryl. Hemostasis noted. Mom and baby were skin to skin and doing well after delivery. Live female baby (baby's name is undecided) APGARs 8 (1 min), 5 (8 min) EBL 300 mL Laceration:: labial Placental Delivery Description: Spontaneous
[2024-02-11] MEDS: PRENATAL MULTIVITAMIN W/IRON 1 EACH PO (15:09)
[2024-02-11] MEDS: ACETAMINOPHEN 500MG TAB 1000 MG PO ×2 (15:10→21:40)
[2024-02-11] MEDS: IBUPROFEN 400 MG TABLET 800 MG PO (15:11)
[2024-02-11] MEDS: WITCH HAZEL 40 PADS/BOX 1 EACH TP (15:23)
[2024-02-11] MEDS: BENZOCAINE-MENTHOL SPRAY 56GM CAN TP (15:24)
[2024-02-11 20:12] VITALS: BP 129/56; PULSE 80; RESP 17; TEMP 36.8; O2SAT 95
[2024-02-12 07:11] LABS: Basophils % 0.3 % (0.1-2.0); Eosinophils # 0.1 K/mm3 (0.0-0.4); Eosinophils % 1.1 % (0.1-12.0); Hematocrit 33.8 % (37.0-47.0); Hemoglobin 11.1 g/dL (12.2-16.2); Lymphocytes # 2.3 K/mm3 (0.7-4.5); Mean Corpuscular HGB Conc 32.8 g/dL (31.8-35.4); Mean Corpuscular Hemoglobin 31.6 pg (27.0-31.2); Mean Corpuscular Volume 96.5 fl (81-99); Mean Platelet Volume 9.9 fl (7.4-10.4); Monocytes # 0.6 K/mm3 (0.1-1.0); Monocytes % 4.6 % (1.7-9.3); Neutrophils # 9.6 K/mm3 (1.8-7.8); Platelet Count 242 K/mm3 (142-424); Red Blood Count 3.51 M/mm3 (4.20-5.40); Red Cell Distribution Width 14.3 % (11.5-17.5); White Blood Count 12.6 K/mm3 (4.8-10.8)
[2024-02-12] MEDS: ACETAMINOPHEN 500MG TAB 1000 MG PO (07:39)
[2024-02-12] MEDS: IBUPROFEN 400 MG TABLET 800 MG PO (07:39)
[2024-02-12 08:30] VITALS: BP 128/66; PULSE 93; RESP 18; TEMP 36.6; O2SAT 97
--- NOTE | 2024-02-12 08:36 | P.DS_ITS ---
General Admission date:: 02/11/24 Discharge date: 02/12/24 Exam Data for Last 24 hours Vital signs and Labs for Last 24 Hours: Temp Pulse Resp BP Pulse Ox O2 Del Method 98.3 F 80 17 129/56 L 95 Room Air 02/11/24 20:12 02/11/24 20:12 02/11/24 20:12 02/11/24 20:12 02/11/24 20:12 02/11/24 20:12 Laboratory Results - last 24 hr 02/11/24 03:50: Blood Type O Negative, Antibody Screen Positive, Antibody Identification Anti-D, Crossmatch (AHG) See Detail 02/12/24 06:45: WBC 12.6 H, RBC 3.51 L, Hgb 11.1 L, Hct 33.8 L, MCV 96.5, MCH 31.6 H, MCHC 32.8, RDW 14.3, Plt Count 242, MPV 9.9, Neut % (Auto) 76.0, Lymph % (Auto) 18.0, [place] % (Auto) 4.6, Eos % (Auto) 1.1, Baso % (Auto) 0.3, Neut # (Auto) 9.6 H, Lymph # (Auto) 2.3, [place] # (Auto) 0.6, Eos # (Auto) 0.1, Baso # (Auto) 0.0 I & O for Last 24 hours: Intake & Output 02/09/24 02/10/24 02/11/24 02/12/24 23:59 23:59 23:59 23:59 Weight 184 lb Results Data Completed and Pending Labs on day of discharge: Labs from last 24 hours 02/12/24 02/11/24 06:45 03:50 WBC 12.6 H RBC 3.51 L Hgb 11.1 L Hct 33.8 L MCV 96.5 MCH 31.6 H MCHC 32.8 RDW 14.3 Plt Count 242 MPV 9.9 Neut % (Auto) 76.0 Lymph % (Auto) 18.0 [place] % (Auto) 4.6 Eos % (Auto) 1.1 Baso % (Auto) 0.3 Neut # (Auto) 9.6 H Lymph # (Auto) 2.3 [place] # (Auto) 0.6 Eos # (Auto) 0.1 Baso # (Auto) 0.0 Blood Type O Negative Antibody Screen Positive Antibody Identification Anti-D Crossmatch (AHG) See Detail DS: Diagnosis Discharge Diagnosis (1) 38 weeks gestation of : Status: Acute Code(s): Z3A.38 - 38 weeks gestation of (2) Spontaneous rupture of membranes: Status: Acute (3) Spontaneous onset of labor: Status: Acute (4) AMA (advanced maternal age) multigravida 35+: Status: Acute Code(s): O09.529 - Supervision of elderly multigravida, unspecified trimester Qualifiers: Trimester: second trimester Qualified Code(s): O09.522 - Supervision of elderly multigravida, second trimester (5) Uterine fibroid during , antepartum: Status: Acute Code(s): O34.10 - Maternal care for benign tumor of corpus uteri, unspecified trimester; D25.9 - Leiomyoma of uterus, unspecified (6) Depression affecting : Status: Acute Code(s): O99.340 - Other mental disorders complicating , unspecified trimester; F32.A - Depression, unspecified (7) Rh negative state in antepartum period: Status: Acute Code(s): O26.899 - Other specified related conditions, unspecified trimester; Z67.91 - Unspecified blood type, Rh negative (8) Hx of cardiomyopathy: Status: Acute Code(s): Z86.79 - Personal history of other diseases of the circulatory system Meds Home Medications and Allergies Home Medications Medication Instructions Recorded Confirmed Type vits no.126-ferrous fum 1 tab PO DAILY Supplement 07/05/23 02/11/24 History 28 mg iron-folic acid 800 mcg tablet (Classic ) New Prescriptions to Start Prescriptions: Allergies Allergy/AdvReac Type Severity Reaction Status Date / Time No Known Allergies Allergy Verified 02/05/24 10:34 Discharge Plan Follow up Plan Follow up with: Katelyn Robles DO [Staff Physician] - Enter time for follow up Prescriptions/Medication Reconciliation: No Action Classic 28 mg iron- 800 mcg tablet 1 tab PO DAILY Patient Discharge Instructions Patient Instructions: Depression, Hemorrhage, DI for Labor and Delivery, Vaginal , DI for Pre-eclampsia, [facility] Post Dischar ge Instructions Providers Primary Care Provider: Loli Ashford Admit Provider: Katelyn Robles Attending Provider: Katelyn Robles
--- NOTE | 2024-02-12 08:55 | EXP.DC.SUM ---
General Admission date:: 02/11/24 Discharge date: 02/12/24 HPI HPI HPI: PPD # 1 s/p Feeling well. Pain controlled. Formula feeding. Lochia is appropriate. Voiding without difficulty and passing flatus. Tolerating regular diet. No fever/chills, chest pain or shortness of breath. No headaches, vision changes, RUQ pain or swelling. Ambulating well ad triston. Hospital Course Hospital Course Hospital Course: Ms Aretha Felipe is a 43 yo at 38w1d who presents to [facility] L&D with complaint of leakage of fluid that woke her up this morning around 0250. Contractions started shortly after. Baby is active. She has had good care. GBS negative. Amnisure was positive. She was admitted to L&D for SROM and onset of labor. Pitocin was used to augment labor. She had a normal spontaneous vaginal delivery on 02/11/24 at 0954. She delivered a live female baby, Christel Gonzalez, weighing 6 lb 12 oz. APGARs 8 (1 min), 8 (5 min). EBL 300 mL. She did well . Pain controlled. Formula feeding. Lochia appropriate. Voiding without difficulty and passing flatus. Tolerating regular diet. Denies fever/chills, chest pain and shortness of breath. No headaches, dizziness/lightheadedness or vision changes. Vital signs stable, afebrile. Heart regular rate and rhythm. Lungs clear to auscultation. Abdomen soft, nontender. No lower extremity swelling. Ambulating well ad triston. Normal hospital course. She was discharged to home on POPD # 1 with instructions to follow-up in the office in 2 weeks or sooner if needed. Exam Data for Last 24 hours Vital signs and Labs for Last 24 Hours: Temp Pulse Resp BP Pulse Ox O2 Del Method 98.3 F 80 17 129/56 L 95 Room Air 02/11/24 20:12 02/11/24 20:12 02/11/24 20:12 02/11/24 20:12 02/11/24 20:12 02/11/24 20:12 Laboratory Results - last 24 hr 02/11/24 03:50: Blood Type O Negative, Antibody Screen Positive, Antibody Identification Anti-D, Crossmatch (AHG) See Detail 02/12/24 06:45: WBC 12.6 H, RBC 3.51 L, Hgb 11.1 L, Hct 33.8 L, MCV 96.5, MCH 31.6 H, MCHC 32.8, RDW 14.3, Plt Count 242, MPV 9.9, Neut % (Auto) 76.0, Lymph % (Auto) 18.0, [place] % (Auto) 4.6, Eos % (Auto) 1.1, Baso % (Auto) 0.3, Neut # (Auto) 9.6 H, Lymph # (Auto) 2.3, [place] # (Auto) 0.6, Eos # (Auto) 0.1, Baso # (Auto) 0.0 I & O for Last 24 hours: Intake & Output 02/09/24 02/10/24 02/11/24 02/12/24 23:59 23:59 23:59 23:59 Weight 184 lb Constitutional Constitutional: no acute distress and cooperative *Routine HEENT Exam Head: Present normocephalic and atraumatic Eye: Absent conjunctivae pink ENT: Present mucous membranes moist *Routine Neck Exam Neck: Present full ROM *Routine Respiratory Exam Respiratory: Present CTA bilaterally and normal respiratory effort *Routine Cardiovascular Exam Cardiovascular: Present RRR *Routine Abdominal Exam Abdominal: Present soft and normoactive bowel sounds; Absent tenderness or distended Comments: Uterine fundus firm and below umbilicus *Routine Rectal Exam Patient deferred: visual exam *Routine Exam Patient deferred: external exam *Routine Extremities Exam Extremities: Present full ROM; Absent edema or calf tenderness *Routine Neurological Exam Neurological: Present alert, moving all extremities and normal speech Routine Psychiatric Exam Psychiatric: Present normal affect and cooperative Results Data Completed and Pending Labs on day of discharge: Labs from last 24 hours 02/12/24 02/11/24 06:45 03:50 WBC 12.6 H RBC 3.51 L Hgb 11.1 L Hct 33.8 L MCV 96.5 MCH 31.6 H MCHC 32.8 RDW 14.3 Plt Count 242 MPV 9.9 Neut % (Auto) 76.0 Lymph % (Auto) 18.0 [place] % (Auto) 4.6 Eos % (Auto) 1.1 Baso % (Auto) 0.3 Neut # (Auto) 9.6 H Lymph # (Auto) 2.3 [place] # (Auto) 0.6 Eos # (Auto) 0.1 Baso # (Auto) 0.0 Blood Type O Negative Antibody Screen Positive Antibody Identification Anti-D Crossmatch (AHG) See Detail DS: Diagnosis Discharge Diagnosis (1) 38 weeks gestation of : Status: Acute Code(s): Z3A.38 - 38 weeks gestation of (2) Spontaneous rupture of membranes: Status: Acute (3) Spontaneous onset of labor: Status: Acute (4) AMA (advanced maternal age) multigravida 35+: Status: Acute Code(s): O09.529 - Supervision of elderly multigravida, unspecified trimester Qualifiers: Trimester: second trimester Qualified Code(s): O09.522 - Supervision of elderly multigravida, second trimester (5) Uterine fibroid during , antepartum: Status: Acute Code(s): O34.10 - Maternal care for benign tumor of corpus uteri, unspecified trimester; D25.9 - Leiomyoma of uterus, unspecified (6) Depression affecting : Status: Acute Code(s): O99.340 - Other mental disorders complicating , unspecified trimester; F32.A - Depression, unspecified (7) Rh negative state in antepartum period: Status: Acute Code(s): O26.899 - Other specified related conditions, unspecified trimester; Z67.91 - Unspecified blood type, Rh negative (8) Hx of cardiomyopathy: Status: Acute Code(s): Z86.79 - Personal history of other diseases of the circulatory system Meds Home Medications and Allergies Home Medications Medication Instructions Recorded Confirmed Type vits no.126-ferrous fum 1 tab PO DAILY Supplement 07/05/23 02/11/24 History 28 mg iron-folic acid 800 mcg tablet (Classic ) ibuprofen 400 mg tablet 800 mg (2 x 400 mg) PO Q8HP PRN 02/12/24 Rx Mild To Moderate Pain (1-6) #40 tabs New Prescriptions to Start Prescriptions: Katelyn Nava Allergies Allergy/AdvReac Type Severity Reaction Status Date / Time No Known Allergies Allergy Verified 02/05/24 10:34 Discharge Plan Disposition Patient Disposition: Home, Self-Care Condition: Good Discharge Order Discharge Orders: Discharge Order (Routine); Ordered 06/19/24 Ordered By: Katelyn Robles Follow up Plan Follow up with: Katelyn Robles DO [Staff Physician] - Enter time for follow up Prescriptions/Medication Reconciliation: New ibuprofen 400 mg Tablet 800 mg PO Q8HP PRN (Reason: Mild To Moderate Pain (1-6)) Qty: 40 0RF Continued Classic 28 mg iron- 800 mcg tablet 1 tab PO DAILY Problem Reconciliation Problems Reviewed?: Yes Patient Discharge Instructions ACTIVITY: Limited activity DIET: continue same diet and regular diet Additional Instructions: Discharge: 1. Take 800 mg Ibuprofen every 8 hours as needed for pain. You can also take 500-1000 mg of Tylenol in between doses, every 6-8 hours. 2. Nothing in the vagina for 6 weeks - no intercourse, douching or tampons. No tub baths/hot tubs or swimming pools 3. Reasons to return to L&D or call On-Call doctor - fever (greater than 100.4) - heavy vaginal bleeding (soaking through 1 pad in less than 2 hours) - vaginal discharge (malodorous and/or purulent) - severe headaches not resolved by medication or rest and leg tenderness/edema 4. depression/blues - Normal to feel anxious/overwhelmed for first 2 weeks - Talk to your doctor if: severe anxiety, trouble bonding with baby, withdrawing from other family members, thoughts of harming yourself or others Katelyn Robles DO [facility] [phone] Patient Instructions: Depression, Hemorrhage, DI for Labor and Delivery, Vaginal , DI for Pre-eclampsia, [facility] Post Discharge Instructions Providers Primary Care Provider: Loli Ashford Admit Provider: Katelyn Robles Attending Provider: Katelyn Robles
== END 2024-02-12 13:05 | disposition home or self-care (01) | DRG 807 ==
LOC: OBOUT 03:41 → OB 03:41
PROVIDERS: Nurse Practitioner Obstetrics & Gynecology; Admitting Provider Obstetrics & Gynecology; PCP Nurse Practitioner Family; Visit Provider Obstetrics & Gynecology
DX: O99.344 Other mental disorders complicating childbirth (principal); Z37.0 Single live birth; Z3A.38 38 weeks gestation of pregnancy; F32.A Depression, unspecified
CPT/HCPCS: 59409; 36415; 59025; 80307; 81001; 84112; 85025; 86850; 86870; J3010; J7120

== ENCOUNTER 2024-06-09 21:58 | Emergency (ER) | payer BC, SELFPAY ==
[2024-06-09 21:59] VITALS: BP 163/94; PULSE 125; RESP 18; TEMP 36.6; O2SAT 99; BMI 28.3
[2024-06-09 22:04] VITALS: BP 163/94; PULSE 127; O2SAT 99
[2024-06-09 22:15] VITALS: PULSE 121; O2SAT 99
--- NOTE | 2024-06-09 22:16 | XR_ITS ---
PROCEDURE INFORMATION: Exam: XR Left Femur Exam date and time: 06/09/2024 10:14 PM Age: 43 years old Clinical indication: Pain; Thigh; Left; Additional info: L knee pain, instability TECHNIQUE: Imaging protocol: Radiologic exam of the left femur. Views: 2 views. COMPARISON: CT ABDOMEN PELVIS W CON 06/27/2020 11:38 AM FINDINGS: Bones/joints: Unremarkable. No acute fracture. Soft tissues: Unremarkable. IMPRESSION: No acute findings.
--- NOTE | 2024-06-09 22:16 | XR_ITS ---
PROCEDURE INFORMATION: Exam: XR Left Tibia and Fibula Exam date and time: 06/09/2024 10:17 PM Age: 43 years old Clinical indication: Pain; Lower leg; Left; Additional info: L knee pain, instability TECHNIQUE: Imaging protocol: Radiologic exam of the left tibia and fibula. Views: 2 views. COMPARISON: CR Knee L 06/09/2024 10:15 PM FINDINGS: Bones/joints: Normal. Soft tissues: Normal. IMPRESSION: No acute findings.
--- NOTE | 2024-06-09 22:16 | XR_ITS ---
PROCEDURE INFORMATION: Exam: XR Left Knee Exam date and time: 06/09/2024 10:15 PM Age: 43 years old Clinical indication: Pain; Knee; Left; Additional info: L knee pain, instability TECHNIQUE: Imaging protocol: Radiologic exam of the left knee. Views: 3 views. COMPARISON: CR Femur L 06/09/2024 10:14 PM FINDINGS: Bones/joints: Normal. Soft tissues: Normal. IMPRESSION: No acute findings.
--- NOTE | 2024-06-09 22:17 | [facility].EDGENADL ---
Discharge Plan Disposition Patient Disposition: Home, Self-Care Condition: Good Prescriptions Prescriptions: No Action norethindrone (contraceptive) 0.35 mg tablet 0.35 mg PO DAILY Qty: 84 4RF Classic 28 mg iron- 800 mcg tablet 1 tab PO DAILY Referrals Follow up/Referrals: Jermaine Velasquez DO [Staff Physician] - See instructions Loli Ashford [Primary Care Provider] - See instructions Activity Restrictions/Add. Instructions Additional Instructions/Restrictions: You were evaluated in the emergency department today. Please use your knee brace for support. Use crutches as needed to support and offload weight from your left knee. Rest, ice, and elevate your left lower extremity for symptomatic improvement. Take Tylenol and ibuprofen every 4-6 hours at home as needed for pain. Call orthopedics in the morning to arrange for follow-up. You may also follow-up closely with your primary care provider. Return to the emergency department for new or worsening symptoms. Clinical Impressions Clinical Impression: Acute pain of left knee Stand Alone Forms Stand Alone Forms: Work/School Release Instructions Patient Instructions: DI for Knee Effusion, DI for Knee Pain Print Language Print Language: [place] Discharge ED Provider: Ivania Berumen General Adult HPI General Chief complaint: Extremity Injury, Lower Stated complaint: AO 06/09/242099 left knee injury Time Seen by Provider: 06/09/24 22:03 Mode of Arrival: Ambulatory Source of Information: Patient Limitations: No Limitations Description of Symptoms (Recalled from ER Triage Doc. by RN): Fell back one hour ago, tripped, felt a pop- not a lot of pain, however she feels like something is wrong with it (left knee) History of Present Illness HPI narrative: This patient is a 43-year-old female who denies significant past medical history presenting to the emergency department for evaluation with concern for left knee injury. Patient reports that about an hour prior to arrival, she tripped, falling backwards. She states that she felt a pop in her knee as she went down and started experiencing some throbbing behind her kneecap. She notes that since then, anytime she tries to put weight on her left knee it gives out from under her and she feels like it is extremely unstable. She notes she is not able to put weight on it or walk normally secondary to this. She denies any head injury, loss of consciousness, or other injuries. No numbness, tingling, or other issues. She was well prior to this. She denies any concerns she could be Related Data Home Medications ?Medication ?Instructions ?Recorded ?Confirmed vits no.126-ferrous fum 1 tab PO DAILY Supplement 07/05/23 03/30/24 28 mg iron-folic acid 800 mcg tablet (Classic ) Previous Rx's ?Medication ?Instructions ?Recorded norethindrone (contraceptive) 0.35 0.35 mg PO DAILY #84 tabs 03/30/24 mg tablet Allergies Allergy/AdvReac Type Severity Reaction Status Date / Time No Known Allergies Allergy Verified 03/30/24 11:14 [facility] Disclaimer: The information contained in this section may have been updated after the patient was seen, as this information can be updated by other users. Medical History Status post normal vaginal delivery Depression Heterozygous factor V Leiden mutation Hx of cardiomyopathy Family history of factor V deficiency Family history of von Willebrand disease Fibroid uterus Cardiomyopathy Dyspnea CMV infection, acute Surgical History History of surgery Family History Other Cancer Stroke Social History Smoking Status: Current every day smoker tobacco type: e-cigarettes smoking status stop date: 06/25/23 alcohol intake: never substance use type: denies use current occupational status: employed Travel in the last 8 weeks: None household members: children housing: house current occupation: teacher Other Medical History Have you received the Flu Vaccine for this season: No Have you received the Pneumonia Vaccine: No ROS Obtained: Yes All systems reviewed & no additional complaints except as documented Physical Exam General General appearance: alert and in no apparent distress Comment: Uncomfortable appearing Head Head exam: atraumatic and normocephalic Eye Eye exam: Present normal appearance, PERRL and EOMI ENT ENT exam: Present normal exam, normal oropharynx, mucous membranes moist and normal external ear exam Neck Neck exam: Present normal inspection, full ROM and trachea midline; Absent tenderness Chest Chest inspection: Present normal inspection and symmetric chest wall rise; Absent tenderness Respiratory Respiratory exam: Present normal lung sounds bilaterally; Absent respiratory distress, wheezes, stridor or accessory muscle use Cardiovascular Cardiovascular exam: Present normal rhythm and tachycardia Abdominal Exam Abdominal exam: Present soft; Absent distention, tenderness or guarding Extremities Exam Extremities exam: Present tenderness (L knee, especially about medial joint line), normal capillary refill, joint swelling (mild L knee effusion) and other (Patient is not very cooperative with examination or stressing of the ligaments of the knee, but I do not appreciate any obvious instability. She has intact straight leg raise. She has patellar apprehension.); Absent full ROM (Will not participate in active or passive ROM secondary to pain, resists passive ROM) Back Exam Back exam: Present normal inspection and full ROM; Absent tenderness Neurological Exam Neurological exam: Present alert, oriented X3 and CN II-XII intact; Absent motor sensory deficit Psychiatric Psychiatric exam: Present normal affect and normal mood Skin Skin exam: Present warm and dry Medical Decision Making Medical Records Medical records reviewed: Yes I reviewed the patient's medical records. Screening: Per USPSTF and CDC recommendations, given the prevalence of disease in our region, it is our hospital?s policy to screen for HIV and viral Hepatitis for all patients aged 18 and over and those with ongoing risk factors. Abrahan Inquiry Pt receiving controlled substance: No Vital Signs: 06/09/24 21:59 06/09/24 22:04 06/09/24 22:15 Temperature 97.9 F Temperature Source Oral Pulse Rate 127 H 121 H Pulse Rate [Right Radial] 125 H Respiratory Rate 18 Blood Pressure 163/94 H Blood Pressure [Right Arm] 163/94 H Blood Pressure Mean [Right Arm] 117 Blood Pressure Source [Right Arm] Automatic Cuff Blood Pressure Position [Right Arm] Supine 02 Sat by Pulse Oximetry 99 99 99 Oxygen Delivery Method Room Air Lab Data Lab results reviewed: Yes I reviewed the patient's lab results. Orders (Tests/Meds): ED MEDICATIONS Discontinued Medications Generic Name Dose Route Start Last Admin Trade Name Freq PRN Reason Stop Dose Admin Acetaminophen 1,000 mg 06/09/24 22:16 06/09/24 22:20 Acetaminophen 500mg Tab PO 06/09/24 22:17 1,000 mg ONCE ONE Administration Ketorolac Tromethamine 30 mg 06/09/24 22:16 06/09/24 22:20 Ketorolac 30mg/Ml Vial IM 06/09/24 22:17 30 mg ONCE ONE Administration ORDERS Category Date Time Status Femur XR left 2 views [XR femur LT 2V] Stat Exams 06/09/24 22:16 Taken Knee XR left 3 views [XR knee LT 3V] Stat Exams 06/09/24 22:16 Taken Tibia/fibula XR left 2 views [XR tibia fibula LT 2V] Exams 06/09/24 22:16 Taken Stat Medical Decision Narrative: In summary, this patient is a 43-year-old female presenting to the Emergency Department for evaluation of left knee injury and pain. Differential diagnoses considered include but are not limited to fracture, contusion, patellar dislocation, cartilage injury, ligamentous injury, neurovascular injury. Ruling out the most morbid conditions drove assessment. On exam, the patient has a mild left knee effusion with tenderness to palpation, especially along the medial joint line. She has patellar apprehension. She does not participate in active or passive range of motion secondary to pain, resisting passive range of motion. I cannot appreciate obvious ligamentous instability, but she states she feels significant instability with any attempt to bear weight. She is neurovascularly intact distally. She denies any concern she could be . Workup included x-rays of the left femur, knee, tib-fib. She was given IM Toradol and oral Tylenol for symptomatic improvement of pain. I independently interpreted x-ray prior to the radiologist read and noted no acute fracture or dislocation. Please see their read for final interpretation. Ultimately, patient complains of significant instability and inability to bear weight on her leg, so she was placed in a knee brace and given crutches to offload weight from her left lower extremity. I feel she would benefit from close follow-up with orthopedics for further management to see if they feel like MRI could potentially be appropriate. She was given instructions to call their office in the morning to schedule an appointment. She was given instruction for supportive management and strict return precautions. She was discharged after all questions were answered Critical Care Critical Care Time Critical Care Time: No
[2024-06-09] MEDS: ACETAMINOPHEN 500MG TAB 1000 MG PO (22:20)
[2024-06-09] MEDS: KETOROLAC 30MG/ML VIAL 30 MG IM (22:20)
[2024-06-09 22:50] VITALS: BP 128/74; PULSE 95; RESP 18; TEMP 36.6; O2SAT 100
== END 2024-06-09 22:51 | disposition home or self-care (01) ==
PROVIDERS: Emergency Provider Emergency Medicine; PCP Nurse Practitioner Family
DX: M25.562 Pain in left knee (principal)
CPT/HCPCS: 73552; 73562; 73590; 96372; 99283; J1885

== ENCOUNTER 2024-09-24 16:00 | Outpatient (RCR) | payer BC, OTHER, SELFPAY | END 2024-09-24 23:59 | disposition home or self-care (01) | LOC: PT 16:00 | PROVIDERS: Visit Provider Orthopaedic Surgery | DX: Z98.890 Other specified postprocedural states (principal); S83.512A Sprain of anterior cruciate ligament of left knee, initial encounter | CPT/HCPCS: 97014; 97110; 97163; 97530; G0283 ==

== ENCOUNTER 2024-10-15 16:00 | Outpatient (RCR) | payer BC, OTHER, SELFPAY | END 2024-10-15 23:59 | disposition home or self-care (01) | LOC: PT 16:00 | PROVIDERS: PCP Nurse Practitioner Family; Visit Provider Orthopaedic Surgery | DX: Z98.890 Other specified postprocedural states (principal); S83.512A Sprain of anterior cruciate ligament of left knee, initial encounter | CPT/HCPCS: 97110; 97112; 97164; 97530 ==

== ENCOUNTER 2024-10-26 15:57 | Outpatient (RCR) | payer BC, OTHER, SELFPAY | END 2024-11-03 14:52 | disposition home or self-care (01) | LOC: PT 15:57 | PROVIDERS: PCP Nurse Practitioner Family; Visit Provider Orthopaedic Surgery | DX: Z98.890 Other specified postprocedural states (principal); S83.512A Sprain of anterior cruciate ligament of left knee, initial encounter | CPT/HCPCS: 97110; 97530 ==